=== PATIENT | male | born 1975 | race Caucasian/White ===

== ENCOUNTER 2017-01-26 23:32 | Inpatient (IN) | payer MEDICAID ==
[~2017-01-26] VITALS: Ht 188 cm; Wt 119.0 kg
[2017-01-26 23:34] VITALS: BP 153/97; PULSE 84; RESP 18; TEMP 99; O2SAT 96
[2017-01-26] MEDS ORDERED: NITROGLYCERIN 0.4 MG SL 25 TABS/BTL SL ONE (23:40)
[2017-01-27] VITALS (17 sets, daily range): BP systolic 123–157; BP diastolic 70–98; PULSE 58–102; RESP 16–20; TEMP 97.8–98.6; O2SAT 96–99
[2017-01-27] MEDS ORDERED: SODIUM CHLORIDE 0.9% FLUSH 10 ML FLUSH IVF PRN
[2017-01-27] MEDS ORDERED: NITROGLYCERIN 0.4 MG SL 25 TABS/BTL SL ONE
[2017-01-27] MEDS ORDERED: NITROGLYCERIN 2% OINT 1 GM PACKET TOP ONE
[2017-01-27] MEDS ORDERED: MORPHINE SULFATE 4 MG/ML INJ IV PUSH ONE
[2017-01-27] MEDS ORDERED: ONDANSETRON HCL 4 MG/2 ML VIAL IV ONE
[2017-01-27] MEDS ORDERED: SODIUM CHLORID 0.9% 500 ML INJ 500 ML IV ONE
--- NOTE | 2017-01-27 00:08 | PD ---
HPI Chief Complaint: Chest Pain Time Seen by Provider: 23:51 Travel History International Travel<30 days: No Contact w/Intl Traveler<30days: No Traveled to known affect area: No History of Present Illness HPI The patient is a 41 year old male who presents to the [facility] emergency department with a history of chest pain that awoke him from sound sleep presently an hour prior to arrival. He reports that it has been coming and going approximately every 5 minutes. He reports that it is across his chest and a line both on the right and left. He reports that the pain is a dull sensation. He reports that the pain radiates up into bilateral shoulders, upper arms. He reports that he had a similar pain 2 days ago. He reports that the pain 2 days ago resolved on its own. He denies having any indigestion. He denies having any nausea or vomiting. He reports that he has had diaphoresis associated with this. He denies having any shortness of breath. He denies having any prior history of coronary artery disease. He reports that he was diagnosed with hypertension in the past, however this resolved and he was taken off of medications presently 5 years ago. He denies having a primary care physician currently. He denies having any known history of hyperlipidemia or diabetes mellitus. The patient does report that he smokes 5-6 cigarettes per day. On review of systems otherwise, the patient denies any recent fevers, cough, congestion, neck pain, abdominal pain, diarrhea, urinary symptoms, or neurologic symptoms. [facility] Past Medical History Narrative Medical The patient's past medical history is significant for hypertension Diminished Hearing: No Hypertension: Yes Past Surgical History Narrative Surgical The patient's past surgical history is significant for an abdominal surgery that he cannot recall the name of. Abdominal Surgery: Yes (HERNIA REPAIR) Social History Alcohol Use: No Tobacco Use: Yes (5-6 CIGS/DAY) Substance Use: No Allergies-Medications (Allergen,Severity, Reaction): Coded Allergies: No Known Allergies (Unverified , 01/26/17) Reported Meds & Prescriptions Reported Meds & Active Scripts Active No Active Prescriptions or Reported Medications Review of Systems Except as stated in HPI: all other systems reviewed are Neg General / Constitutional: No: Fever Eyes: No: Visual changes HENT: No: Headaches Cardiovascular: Positive: Chest Pain or Discomfort, Diaphoresis Respiratory: No: Shortness of Breath Gastrointestinal: No: Abdominal Pain Genitourinary: No: Dysuria Musculoskeletal: No: Pain Skin: No Rash Neurologic: No: Weakness Psychiatric: No: Depression Endocrine: No: Polydipsia Hematologic/Lymphatic: No: Easy Bruising Physical Exam Narrative General: The patient is a well-developed well-nourished male in no acute distress. The patient reports that his pain was a 5 out of 10 in severity prior to arrival. The patient received 2 low-dose aspirin prior to her arrival and one sibling will nitroglycerin. The patient reports that he is now pain-free. Head and Neck exam: Head is normocephalic atraumatic. Eyes: EOMI, pupils are equal round and reactive to light. Nose: Midline septum with pink mucous membranes Mouth: Dentition unremarkable. Moist mucus membranes. Posterior oropharynx is not erythematous. No tonsillar hypertrophy. Uvula midline. Airway patent. Neck: No palpable lymphadenopathy. No nuchal rigidity. No thyromegaly. Cardiovascular: Regular rate and rhythm without murmurs, gallops, or rubs. No pulse deficit to the extremities on simultaneous auscultation and palpation of his radial artery. Lungs: Clear to auscultation bilaterally. No wheezes, rhonchi, or rales. Abdomen: Soft, without tenderness to palpation in all 4 quadrants of the abdomen. No guarding, rebound, or rigidity. Normal bowel sounds are audible. No tenderness on palpation of McBurney's point. Extremities: No clubbing, cyanosis, or edema. 2+ pulses in all 4 extremities. No calf tenderness on palpation. Back: No costovertebral angle tenderness to palpation. Neurologic Exam: Grossly nonfocal. Skin Exam: No rash noted. Intact skin that is warm and dry. Data Data Last Documented VS Vital Signs Date Time Temp Pulse Resp B/P (MAP) Pulse Ox O2 Delivery O2 Flow Rate FiO2 01/27/17 00:31 73 16 146/86 (106) 98 Room Air 01/27/17 00:23 2.00 01/26/17 23:34 99.0 Orders Orders Nitroglycerin Sl (Nitrostat Sl) (01/26/17 23:40) Electrocardiogram (01/26/17 23:51) B-Type Natriuretic Peptide (01/26/17 23:51) Ckmb (Isoenzyme) Profile (01/26/17 23:51) Complete Blood Count With Diff (01/26/17 23:51) Comprehensive Metabolic Panel (01/26/17:51) D-Dimer (01/26/17:) Magnesium (Mg) (01/26/17 23:51) Prothrombin Time / Inr (Pt) (01/26/17:51) Act Partial Throm Time (Ptt) (01/26/17:51) Troponin I (01/26/17:51) Lipase (01/26/17:51) Chest, Single Ap (01/26/17:51) Ecg Monitoring (01/26/17:) Bilateral Bp Monitoring (01/26/17:) Iv Access Insert/Monitor (01/26/17) Oximetry (01/26/17:) Oxygen Administration (01/26/17:) Morphine Inj (Morphine Inj) (01/27/17 00:00) Nitroglycerin 2% Oint (Nitroglycerin 2% (01/27/17 00:00) Sodium Chloride 0.9% Flush (Ns Flush) (01/27/17 00:00) Nitroglycerin Sl (Nitrostat Sl) (01/27/17 00:00) Sodium Chlorid 0.9% 500 Ml Inj (Ns 500 M (01/27/17 00:00) Ondansetron Inj (Zofran Inj) (01/27/17 00:00) CKMB (01/27/17 00:00) CKMB% (01/27/17 00:00) Admit To Inpatient (01/27/17 ) Vital Signs (Adult) Q4H (01/27/17 01:51) Activity Oob With Assistance (01/27/17 01:51) Wire Weaver / Telemetry .CONTINUOUS (01/27/17 01:51) Diet Npo (01/27/17 Breakfast) Sodium Chloride 0.9% Flush (Ns Flush) (01/27/17 02:00) Sodium Chloride 0.9% Flush (Ns Flush) (01/27/17 09:00) Basic Metabolic Panel (Bmp) (01/28/17 06:00) Complete Blood Count With Diff (01/28/17 06:00) Creatine Kinase (Cpk) (01/27/17 06:00) Creatine Kinase (Cpk) (01/27/17 12:00) Troponin I (01/27/17 06:00) Troponin I (01/27/17 12:00) Electrocardiogram (01/27/17 06:00) Electrocardiogram (01/27/17 12:00) Case Management Consult (01/27/17 01:51) Naloxone Inj (Narcan Inj) (01/27/17 02:00) Inpatient Certification (01/27/17 ) Consult Cardiology (01/27/17 ) Heparin Infusion KING.Q1H (01/27/17 01:55) Heparin Inj (Heparin Inj) (01/27/17 02:00) Heparin Inj (Heparin Inj) (01/27/17 08:00) Heparin Inj (Heparin Inj) (01/27/17 08:00) Heparin-D5w 25,000 U/250 Ml (Heparin-D5w (01/27/17 02:00) Cbc No Diff, Includes Plts (01/30/17 06:00) Act Partial Throm Time (Ptt) (01/27/17 08:55) Occult Blood (Hemoccult) Stool (01/27/17 01:55) Nitroglycerin Sl (Nitrostat Sl) (01/27/17 02:00) Admit Order (Ed Use Only) (01/27/17 01:59) Lipid Profile (01/27/17 06:00) Labs Laboratory Tests Test 01/27/17 00:00 White Blood Count 9.6 TH/MM3 Red Blood Count 5.17 MIL/MM3 Hemoglobin 16.4 GM/DL Hematocrit 46.0 % Mean Corpuscular Volume 88.9 FL Mean Corpuscular Hemoglobin 31.6 PG Mean Corpuscular Hemoglobin Concent 35.6 % Red Cell Distribution Width 13.4 % Platelet Count 239 TH/MM3 Mean Platelet Volume 9.3 FL Neutrophils (%) (Auto) 52.6 % Lymphocytes (%) (Auto) 35.1 % Monocytes (%) (Auto) 9.0 % Eosinophils (%) (Auto) 2.3 % Basophils (%) (Auto) 1.0 % Neutrophils # (Auto) 5.0 TH/MM3 Lymphocytes # (Auto) 3.4 TH/MM3 Monocytes # (Auto) 0.9 TH/MM3 Eosinophils # (Auto) 0.2 TH/MM3 Basophils # (Auto) 0.1 TH/MM3 CBC Comment DIFF FINAL Differential Comment Prothrombin Time 10.9 SEC Prothromb Time International Ratio 1.0 RATIO Activated Partial Thromboplast Time 32.8 SEC D-Dimer Quantitative (PE/DVT) 0.26 MG/L FEU Blood Urea Nitrogen 24 MG/DL Creatinine 0.96 MG/DL Random Glucose 138 MG/DL Total Protein 7.0 GM/DL Albumin 3.8 GM/DL Calcium Level 8.3 MG/DL Magnesium Level 2.0 MG/DL Alkaline Phosphatase 89 U/L Aspartate Amino Transf (AST/SGOT) 27 U/L Alanine Aminotransferase (ALT/SGPT) 52 U/L Total Bilirubin 0.4 MG/DL Sodium Level 140 MEQ/L Potassium Level 3.7 MEQ/L Chloride Level 105 MEQ/L Carbon Dioxide Level 23.7 MEQ/L Anion Gap 11 MEQ/L Estimat Glomerular Filtration Rate 85 ML/MIN Total Creatine Kinase 130 U/L Creatine Kinase MB 2.0 NG/ML Troponin I 0.12 NG/ML B-Type Natriuretic Peptide 4 PG/ML Lipase 143 U/L MDM Medical Decision Making Medical Screen Exam Complete: Yes Emergency Medical Condition: Yes Medical Record Reviewed: Yes Interpretation(s) Last Impressions Chest X-Ray 01/26/17 2456 Signed Impressions: Service Date/Time: Thursday, January 26, 2017 23:58 - CONCLUSION: No acute disease. Miguel Ángel Dillon MD Differential Diagnosis Acute coronary syndrome, versus aortic dissection, versus pulmonary embolism, versus pneumonia, versus acid reflux Narrative Course During the course of the patients emergency department visit, the patients history, examination, and differential diagnosis were reviewed with the patient. The patient had IV access obtained and blood work sent for analysis. The patient was placed on a phototypesetting equipment monitor with oximetry and blood pressure monitoring. An ECG was done on arrival. The patient's ECG reveals a sinus rhythm heart rate of 79, QRS duration is 91 ms, QTC 388 ms, no acute ST segment elevation is noted. This is compared to a prior ECG done by ambulance services which at that time did reveal ST segment depression in leads 3, aVF. The patient was initially provided and she was sent sublingual 1, nitroglycerin 1 inch to the chest wall, Zofran 4 mg IV, the patient received aspirin prior to arrival. The patient was given morphine 2 mg IV 1 for pain. The patients laboratory studies were reviewed and remarkable for white count of 9.6, hemoglobin 16.4, platelets 239 with 9 monos, CMP is remarkable for a BUN of 24, glucose 138, calcium 8.3, CPK 1:30, troponin I is 0.12, BNP is 4, lipase 143. PT PTT are unremarkable, d-dimer is 0.26. Radiology studies were reviewed and remarkable for a chest x-ray that shows no evidence of acute cardiopulmonary disease. Given the patient's elevated troponin and abnormal ECG the patient was started on heparin per [place] protocol. The patients results were discussed with the patient, including the plan of care. I explained that further testing and/ or monitoring is indicated based on the patients history, examination, and/ or laboratory findings. Therefore, I recommended admission for additional evaluation. The patient expressed understanding and was agreeable with this plan. The patient was admitted to the hospital in guarded condition and [facility] Physician Communication Physician Communication The patient's case was discussed with Dr. Vazquez who did agree to admit the patient for further evaluation and treatment at this time. Diagnosis Primary Impression: NSTEMI (non-ST elevated myocardial infarction) Admitting Information Admitting Physician Requests: Admit Scripts No Active Prescriptions or Reported Meds Guera Grewal MD Jan 27, 2017 00:08
--- NOTE | 2017-01-27 00:20 | RADRPT ---
EXAM DATE/TIME: 01/26/2017 23:58 [facility] COMPARISON: No previous studies available for comparison. INDICATIONS : Chest pain. MEDICAL HISTORY : None. SURGICAL HISTORY : None. ENCOUNTER: Initial ACUITY: 2 days PAIN SCORE: 6/10 LOCATION: Left chest FINDINGS: A single view of the chest demonstrates the lungs to be symmetrically aerated without evidence of mas s, infiltrate or effusion. The cardiomediastinal contours are unremarkable. Osseous structures are intact. CONCLUSION: No acute disease. Miguel Ángel Dillon MD on January 27, 2017 at 0:18 Board Certified Radiologist. This report was verified electronically.
[2017-01-27 00:23] LABS: BASOPHIL # 0.1 TH/MM3 (0-0.2); EOSINOPHIL # 0.2 TH/MM3 (0-0.4); EOSINOPHIL % 2.3 % (0.0-4.0); HEMO FLAGS DIFF FINAL; LYMPH % 35.1 % (9.0-44.0); LYMPHOCYTE # 3.4 TH/MM3 (1.0-4.8); MEAN CELL VOLUME 88.9 FL (80.0-100.0); MEAN CORPUSCULAR HEMOGLOBIN 31.6 PG (27.0-34.0); MEAN CORPUSCULAR HGB CONC 35.6 % (32.0-36.0); NEUT % 52.6 % (16.0-70.0); PLATELET COUNT 239 TH/MM3 (150-450); RED BLOOD COUNT 5.17 MIL/MM3 (4.50-5.90); RED CELL DISTRIBUTION WIDTH 13.4 % (11.6-17.2); WHITE BLOOD COUNT 9.6 TH/MM3 (4.0-11.0)
[2017-01-27 00:45] LABS: ALKALINE PHOSPHATASE 89 U/L (45-117); ALT (GPT) 52 U/L (12-78); ANION GAP 11 MEQ/L (5-15); AST (GOT) 27 U/L (15-37); BICARBONATE 23.7 MEQ/L (21.0-32.0); BLOOD UREA NITROGEN 24 MG/DL (7-18); CHLORIDE 105 MEQ/L (98-107); CREATINE KINASE 130 U/L (39-308); GLOMERULAR FILTRATION RATE 85 ML/MIN (>89); SODIUM (NA) 140 MEQ/L (136-145); TOTAL BILIRUBIN ADULT 0.4 MG/DL (0.2-1.0)
[2017-01-27 00:46] LABS: POTASSIUM 3.7 MEQ/L (3.5-5.1)
[2017-01-27 00:52] LABS: APTT (PATIENT) 32.8 SEC (24.3-30.1); PROTHROMBIN TIME - PATIENT 10.9 SEC (9.8-11.6)
[2017-01-27] MEDS ORDERED: SODIUM CHLORIDE 0.9% FLUSH 10 ML FLUSH IV FLUSH PRN ×2 (02:00→12:00)
[2017-01-27] MEDS ORDERED: HEPARIN-D5W 25,000 U/250 ML 250 ML IV PRN (02:00)
[2017-01-27] MEDS ORDERED: HEPARIN SODIUM - IV 10,000 UNITS/10 ML VIAL IV PUSH ONE (02:00)
[2017-01-27] MEDS ORDERED: NITROGLYCERIN 0.4 MG SL 25 TABS/BTL SL PRN (02:00)
[2017-01-27] MEDS ORDERED: NALOXONE HCL 0.4 MG/ML AMP IV PUSH PRN (02:00)
--- NOTE | 2017-01-27 03:53 | HHI.HP ---
[facility] No Primary Care Physician Admission Diagnosis Non STEMI Diagnoses: Chief Complaint: chest pain Travel History International Travel<30 Days: No Contact w/Intl Traveler <30 Da: No Traveled to Known Affected Are: No History of Present Illness 41 y/o male with a history of HTN (not on any medication for 5 years) presented to the ED with complaints of chest pain. Patient only speaks [place] and translation was provided by his son at bedside. Patient states he began to have chest pain tonight prior to coming in that woke him out of his sleep, he states the pain is a intermittent dull pressure in the center of his chest that radiated to his bilateral shoulders and down his arms, with associated diaphoresis and sob. He states he had an episode 2 days ago but did not think anything of it, and it went away on its own. He denies any fever, chills, dizziness or headaches. Past Family Social History Past Medical History HTN, no medication in 5 years Past Surgical History Hernia repair Reported Medications Reported Meds & Active Scripts Active No Active Prescriptions or Reported Medications Allergies: Coded Allergies: No Known Allergies (Unverified , 01/26/17) Active Ordered Medications Current Medications Medications (Trade) Dose Ordered Sig/Ross Route Start Time Stop Time Status Last Admin (NS Flush) 2 ml UNSCH PRN IVF 01/27/17 00:00 (NS Flush) 2 ml UNSCH PRN IV FLUSH 01/27/17 02:00 (NS Flush) 2 ml BID IV FLUSH 01/27/17 09:00 (Narcan Inj) 0.4 mg UNSCH PRN IV PUSH 01/27/17 02:00 (Heparin Inj) 5,000 units UNSCH PRN IV PUSH 01/27/17 08:00 (Heparin Inj) 2,500 units UNSCH PRN IV PUSH 01/27/17 08:00 Heparin Sodium/ Dextrose 250 ml @ 10 mls/hr TITRATE PRN IV 01/27/17 02:00 01/27/17 02:23 (Nitrostat Sl) 0.4 mg Q5M PRN SL 01/27/17 02:00 Family History Patient is unsure of his family history Social History Tobacco use: 1/2 PPD Alcohol use: Socially Physical Exam Vital Signs Vital Signs Date Time Temp Pulse Resp B/P (MAP) Pulse Ox O2 Delivery O2 Flow Rate FiO2 01/27/17 00:31 73 16 146/86 (106) 98 Room Air 01/27/17 00:23 18 99 Nasal Cannula 2.00 01/27/17 00:23 100 Nasal Cannula 2.00 01/27/17 00:00 72 16 157/98 (117) 96 Room Air 01/26/17 23:38 97 Room Air 01/26/17 23:34 99.0 84 18 153/97 (115) 96 Physical Exam GENERAL: This is a well-nourished, obese patient in NAD SKIN: No rashes, ecchymoses or lesions. Cool and dry. HEAD: Atraumatic. Normocephalic. EYES: Pupils equal round and reactive. ENT: Nose without bleeding, purulent drainage or septal hematoma Airway patent. NECK: Trachea midline. No JVD or lymphadenopathy. CARDIOVASCULAR: Regular rate and rhythm without murmurs, gallops, or rubs. RESPIRATORY: Clear to auscultation. Breath sounds equal bilaterally. No wheezes , rales, or rhonchi. GASTROINTESTINAL: Abdomen soft, non-tender, nondistended. MUSCULOSKELETAL: Extremities without clubbing, cyanosis, or edema. No joint tenderness, effusion, or edema noted. No calf tenderness. NEUROLOGICAL: Awake and alert. Motor and sensory grossly within normal limits. Normal speech. Laboratory Laboratory Tests Test 01/27/17 00:00 White Blood Count 9.6 Red Blood Count 5.17 Hemoglobin 16.4 Hematocrit 46.0 Mean Corpuscular Volume 88.9 Mean Corpuscular Hemoglobin 31.6 Mean Corpuscular Hemoglobin Concent 35.6 Red Cell Distribution Width 13.4 Platelet Count 239 Mean Platelet Volume 9.3 Neutrophils (%) (Auto) 52.6 Lymphocytes (%) (Auto) 35.1 Monocytes (%) (Auto) 9.0 Eosinophils (%) (Auto) 2.3 Basophils (%) (Auto) 1.0 Neutrophils # (Auto) 5.0 Lymphocytes # (Auto) 3.4 Monocytes # (Auto) 0.9 Eosinophils # (Auto) 0.2 Basophils # (Auto) 0.1 CBC Comment DIFF FINAL Differential Comment Prothrombin Time 10.9 Prothromb Time International Ratio 1.0 Activated Partial Thromboplast Time 32.8 D-Dimer Quantitative (PE/DVT) 0.26 Blood Urea Nitrogen 24 Creatinine 0.96 Random Glucose 138 Total Protein 7.0 Albumin 3.8 Calcium Level 8.3 Magnesium Level 2.0 Alkaline Phosphatase 89 Aspartate Amino Transf (AST/SGOT) 27 Alanine Aminotransferase (ALT/SGPT) 52 Total Bilirubin 0.4 Sodium Level 140 Potassium Level 3.7 Chloride Level 105 Carbon Dioxide Level 23.7 Anion Gap 11 Estimat Glomerular Filtration Rate 85 Total Creatine Kinase 130 Creatine Kinase MB 2.0 Troponin I 0.12 B-Type Natriuretic Peptide 4 Lipase 143 Result Diagram: 01/27/17 0000 01/27/17 0000 Briseida VTE Risk Assessment Briseida VTE Risk Assessment: Mod/High Risk (score >= 2) Caprini Risk Assessment Model Point Value = 1 Point Value = 2 Point Value = 3 Point Value = 5 Age 41-60 Minor surgery BMI > 25 kg/m2 Swollen legs Varicose veins or History of unexplained or recurrent spontaneous Oral contraceptives or hormone replacement Sepsis (< 1 month) Serious lung disease, including pneumonia (< 1 month) Abnormal pulmonary function Acute myocardial infarction Congestive heart failure (< 1 month) History of inflammatory bowel disease Medical patient at bed rest Age 61-74 Arthroscopic surgery Major open surgery (> 45 min) Laparoscopic surgery (> 45 min) Malignancy Confined to bed (> 72 hours) Immobilizing plaster cast Central venous access Age >= 75 History of VTE Family history of VTE Factor V Leiden Prothrombin [id number] Lupus anticoagulant Anticardiolipin antibodies Elevated serum homocysteine Heparin-induced thrombocytopenia Other congenital or acquired thrombophilia Stroke (< 1 month) Elective arthroplasty Hip, pelvis, or leg fracture Acute spinal cord injury (< 1 month) Prophylaxis Regimen Total Risk Factor Score Risk Level Prophylaxis Regimen 0-1 Low Early ambulation 2 Moderate Order ONE of the following: *Sequential Compression Device (SCD) *Heparin 5000 units SQ BID 3-4 Higher Order ONE of the following medications: *Heparin 5000 units SQ TID *Enoxaparin/Lovenox 40 mg SQ daily (WT < 150 kg, CrCl > 30 mL/min) *Enoxaparin/Lovenox 30 mg SQ daily (WT < 150 kg, CrCl > 10-29 mL/min) *Enoxaparin/Lovenox 30 mg SQ BID (WT < 150 kg, CrCl > 30 mL/min) AND/OR *Sequential Compression Device (SCD) 5 or more Highest Order ONE of the following medications: *Heparin 5000 units SQ TID (Preferred with Epidurals) *Enoxaparin/Lovenox 40 mg SQ daily (WT < 150 kg, CrCl > 30 mL/min) *Enoxaparin/Lovenox 30 mg SQ daily (WT < 150 kg, CrCl > 10-29 mL/min) *Enoxaparin/Lovenox 30 mg SQ BID (WT < 150 kg, CrCl > 30 mL/min) AND *Sequential Compression Device (SCD) Assessment and Plan Problem List: (1) NSTEMI (non-ST elevated myocardial infarction) ICD Code: I21.4 - Non-ST elevation (NSTEMI) myocardial infarction (2) HTN (hypertension) ICD Code: I10 - Essential (primary) hypertension Assessment and Plan 41 y/o male with a history of HTN (not on any medication for 5 years) presented to the ED with complaints of chest pain NSTEMI, troponin .12 EKG reviewed and shows SR with no ST elevation -Serial troponin and EKGs -Consult Cardiology for recommendations -Heparin Drip ordered -Nitropaste ordered -Morphine IV prn -Metoprolol BID ordered HTN, acute, patient has been off medications for 5 years -Monitor vitals, once pain is controlled and intervention complete patient may need to be placed on medications DVT prophylaxis: Heparin Discussed Condition With Patient and patient's son Physician Certification 2 Midnight Certification Type: Admission for Inpatient Services Order for Inpatient Services The services are ordered in accordance with Medicare regulations or non- Medicare payer requirements, as applicable. In the case of services not specified as inpatient-only, they are appropriately provided as inpatient services in accordance with the 2-midnight benchmark. Estimated LOS (days): 2 days is the estimated time the patient will need to remain in the hospital, assuming treatment plan goals are met and no additional complications. Post-Hospital Plan: Snow Bryant Jan 27, 2017 03:53
[2017-01-27] MEDS: NITROGLYCERIN 2% OINT 1 GM PACKET TOPICAL SCH ×2 (06:52→18:07)
[2017-01-27] MEDS ORDERED: HEPARIN SODIUM - IV 10,000 UNITS/10 ML VIAL IV PUSH PRN ×2 (08:00)
--- NOTE | 2017-01-27 08:09 | PD.CONS ---
[facility] Service CV Consult Requested By Reason for Consult chest pain Primary Care Physician No Primary Care Physician History of Present Illness Here with HTN admitted for chest pain. Patient only speaks Austrian and translation was provided by his son at bedside. Chest pain began two days ago and was intermittent. When happening it would last 10 minutes. It radiated across his chest. There were no associated symptoms. There were no exacerbating of alleviating symptoms. He smoke 5 to 8 cigarettes per day. He has no family history of heart disease. Review of Systems Consitutional: DENIES: Fatigue, Fever, Chills, Weight gain, Weight loss Eyes: DENIES: Amaurosis Fugax, Change in vision Respiratory: DENIES: See HPI, Cough, Snoring, Shortness of breath, Wheezing, Sputum production Cardiovascular: COMPLAINS OF: See HPI Gastrointestinal: DENIES: Nausea, Vomiting, Change in bowel habits, Reflux, Bloody stools, Melena Genitourinary: DENIES: Urinary incontinence, Difficulty voiding Integumentary: DENIES: Rash Neurologic: DENIES: Tingling or numbness, Memory problems, Poor Balance, Stroke symptoms Musculoskeletal: DENIES: Joint pain, Muscle pain, Limited range of motion, Back pain Psychiatric: DENIES: Anxiety, Depression, Sleep disturbances Hematologic: DENIES: Bruising tendencies, Bleeding tendencies Endocrine: DENIES: Weight gain, Weight loss, Thyroid disease Past Family Social History Allergies: Coded Allergies: No Known Allergies (Unverified , 01/26/17) Past Medical History see HPI Past Surgical History Hernia repair Reported Medications Reported Meds & Active Scripts Active No Active Prescriptions or Reported Medications Active Ordered Medications Current Medications Medications (Trade) Dose Ordered Sig/Ross Route Start Time Stop Time Status Last Admin (NS Flush) 2 ml UNSCH PRN IV FLUSH 01/27/17 02:00 (NS Flush) 2 ml BID IV FLUSH 01/27/17 09:00 (Narcan Inj) 0.4 mg UNSCH PRN IV PUSH 01/27/17 02:00 (Heparin Inj) 5,000 units UNSCH PRN IV PUSH 01/27/17 08:00 (Heparin Inj) 2,500 units UNSCH PRN IV PUSH 01/27/17 08:00 Heparin Sodium/ Dextrose 250 ml @ 10 mls/hr TITRATE PRN IV 01/27/17 02:00 01/27/17 02:23 (Nitrostat Sl) 0.4 mg Q5M PRN SL 01/27/17 02:00 (Nitroglycerin 2% Oint) 1 inch Q6HR TOPICAL 01/27/17 06:00 01/27/17 06:52 (Lopressor) 25 mg Q12HR PO 01/27/17 09:00 Family History see HPI Social History see HPI also Alcohol use: Socially denies substance abuse Physical Exam Vital Signs Vital Signs Date Time Temp Pulse Resp B/P (MAP) Pulse Ox O2 Delivery O2 Flow Rate FiO2 01/27/17 07:37 98.0 70 20 138/88 (105) 97 01/27/17 05:16 98.2 64 18 126/73 (90) 97 01/27/17 04:15 01/27/17 03:53 64 16 154/70 (98) 98 Room Air 01/27/17 00:31 73 16 146/86 (106) 98 Room Air 01/27/17 00:23 18 99 Nasal Cannula 2.00 01/27/17 00:23 100 Nasal Cannula 2.00 01/27/17 00:00 72 16 157/98 (117) 96 Room Air 01/26/17 23:38 97 Room Air 01/26/17 23:34 99.0 84 18 153/97 (115) 96 Physical Exam GENERAL: Well-nourished, well-developed patient in no apparent distress. NECK: No JVD. No carotid bruit. CARDIOVASCULAR: Regular rate and rhythm. S1/S2 no murmur, rub, or gallop. RESPIRATORY: No accessory muscle use. Clear to auscultation. Breath sounds equal bilaterally. GASTROINTESTINAL: Abdomen soft, non-tender, nondistended. MUSCULOSKELETAL: Extremities without clubbing, cyanosis, or edema. Laboratory Laboratory Tests Test 01/27/17 00:00 01/27/17 06:50 White Blood Count 9.6 Red Blood Count 5.17 Hemoglobin 16.4 Hematocrit 46.0 Mean Corpuscular Volume 88.9 Mean Corpuscular Hemoglobin 31.6 Mean Corpuscular Hemoglobin Concent 35.6 Red Cell Distribution Width 13.4 Platelet Count 239 Mean Platelet Volume 9.3 Neutrophils (%) (Auto) 52.6 Lymphocytes (%) (Auto) 35.1 Monocytes (%) (Auto) 9.0 Eosinophils (%) (Auto) 2.3 Basophils (%) (Auto) 1.0 Neutrophils # (Auto) 5.0 Lymphocytes # (Auto) 3.4 Monocytes # (Auto) 0.9 Eosinophils # (Auto) 0.2 Basophils # (Auto) 0.1 CBC Comment DIFF FINAL Differential Comment Prothrombin Time 10.9 Prothromb Time International Ratio 1.0 Activated Partial Thromboplast Time 32.8 D-Dimer Quantitative (PE/DVT) 0.26 Blood Urea Nitrogen 24 Creatinine 0.96 Random Glucose 138 Total Protein 7.0 Albumin 3.8 Calcium Level 8.3 Magnesium Level 2.0 Alkaline Phosphatase 89 Aspartate Amino Transf (AST/SGOT) 27 Alanine Aminotransferase (ALT/SGPT) 52 Total Bilirubin 0.4 Sodium Level 140 Potassium Level 3.7 Chloride Level 105 Carbon Dioxide Level 23.7 Anion Gap 11 Estimat Glomerular Filtration Rate 85 Total Creatine Kinase 130 Creatine Kinase MB 2.0 Troponin I 0.12 B-Type Natriuretic Peptide 4 Lipase 143 Result Diagram: 01/27/17 0000 01/27/17 0000 Assessment and Plan Problem List: (1) NSTEMI (non-ST elevated myocardial infarction) ICD Codes: I21.4 - Non-ST elevation (NSTEMI) myocardial infarction (2) HTN (hypertension) ICD Codes: I10 - Essential (primary) hypertension Assessment and Plan Will schedule coronary angiogram for this afternoon make NPO HTN is well controlled now Simone Vidal Jan 27, 2017 08:09
[2017-01-27] MEDS ORDERED: MIDAZOLAM HCL 2 MG/2 ML VIAL IV PUSH SCH (08:15)
[2017-01-27 08:23] LABS: HDL CHOLESTEROL 27.2 MG/DL (40.0-60.0)
[2017-01-27] MEDS: METOPROLOL TARTRATE 25 MG TAB PO SCH ×2 (08:54→21:06)
[2017-01-27] MEDS: SODIUM CHLORIDE 0.9% FLUSH 10 ML FLUSH IV FLUSH SCH ×2 (09:00→21:00)
[2017-01-27] MEDS: SODIUM CHLOR 0.9% 1000 ML INJ 1,000 ML IV SCH (09:04)
[2017-01-27 09:07] LABS: APTT (PATIENT) 36.9 SEC (24.3-30.1)
[2017-01-27] MEDS ORDERED: HEPARIN-NS/PF INJ 1,000 ML ONE (09:29)
[2017-01-27] MEDS ORDERED: MIDAZOLAM HCL 2 MG/2 ML VIAL ONE ×2 (09:30→09:54)
[2017-01-27] MEDS ORDERED: NITROGLYCERIN INJ 5 ML ONE (09:31)
[2017-01-27] MEDS ORDERED: VERAPAMIL HCL 5 MG/2 ML VIAL ONE (09:31)
[2017-01-27] MEDS ORDERED: HEPARIN SODIUM - IV 10,000 UNITS/10 ML VIAL ONE (09:31)
--- NOTE | 2017-01-27 09:53 | EKG ---
Date Performed: 01/26/2017 Time Performed: 23:35:25 PTAGE: 41 years EKG: Sinus rhythm MINIMAL VOLTAGE CRITERIA FOR LVH, CONSIDER NORMAL VARIANT BORDERLINE ECG INTERPRETATION BASED ON A D EFAULT AGE OF 38 YEARS NO PREVIOUS TRACING DOCTOR: Yoan Young Interpretating Date/Time 01/27/2017 09:52:26
--- NOTE | 2017-01-27 10:03 | EKG ---
Date Performed: 01/27/2017 Time Performed: 05:48:07 PTAGE: 41 years EKG: SINUS BRADYCARDIA BORDERLINE ECG PREVIOUS TRACING : 01/27/2017 02.56 Compared to prior tracing no significant change DOCTOR: Yoan Young Interpretating Date/Time 01/27/2017 10:00:19
[2017-01-27] MEDS ORDERED: MISC INFORMATION XX ONE (10:15)
[2017-01-27] MEDS ORDERED: BACITRACIN OINT 0.9 GM PKT TOP ONE (10:15)
--- NOTE | 2017-01-27 10:15 | CATHPROC ---
[employer] HIS Report Study Information Study Number Admission Scheduled Start Study Start [id number] Jan 27 2017 2:01AM 01/27/2017 Jan 27 2017 9:33AM [place] Service Cardiac Catheterization Admit Source Facility Department Emergency department [facility] Physician and Clinical Staff Initial Abrahan Montague Fast [employer] Server Rehan RN, Jake Recorder Miranda Cano,RT(R) Scrub Ming Murillo RCIS(BS) Procedures Performed Procedure Location (Site) Vessel Name Angiogram LV LV Ventricle Coronary Angiograms LCA Left Coronary Coronary Angiograms RCA Right Coronary L Heart Cath Wire insertion Radial (right) Radial Art. Equipment Time Gallery Director Description Size Mfg Part Number Used/Scraped TRANSDUCER, TRUWAVE [id number] 09:39 CAREY HDEZ * Used W/STOCKCOCK *[id number] *[id number] *[id number] PIGTAIL ANG. 145 INFINITI [id number] CATHETER *[id number] 09:39 [employer] PACK, CCL CUSTOM * Used *[id number] 09:39 [employer] SUPPORT, ARTERIAL ADULT 21600 *[id number] Used [id number] 09:39 [email or web address] PACER PEN, SKIN DUAL W/ RULER * Used *[id number] BAND, RADIAL COMPRESSION TR [id number] 10:08 [employer] 29CM Used LARGE 29 *[id number] SHEATH, FR6 RADIAL PRELUDE 09:39 [employer] FR 6 [id number] Used EASE 11CM [id number] 09:39 [employer] WIRE, EXCHANGE 260CM 3MMJ 260CM Used *[id number] 09:39 [employer] OMNIPAQUE, 350 MG, 150ML 150ML [id number] Used [id number] 09:39 [employer] BLANKET,WARM AIR CCL * Used *[id number] History: Allergies Allergy Reaction No Known Allergies History: Risk Factors Family History of Hypertension Dyslipidemia Previous PA Previous Heart Failure Premature CAD Yes No No No No Prior Valve Prior PCI Prior CABG Surgery No No No Cerebrovascular Peripheral Artery Chronic Lung On Dialysis Diabetes Disease Disease Disease No No No No No History: Risk Factors Selection Items Current Smoker History: Symptoms/Diagnosis Selection Items Chest pain History: Stress Tests Stress or Imaging Studies Performed No History: Other Disease Selection Items HTN History: Other Current Smoker Method Packs a Day Years Used Pack Years Yes Cigarettes 1 20 20 Labs Hgb (g/dl) Hct (%) RBC (MIL/MM3) WBC (l/cumm) Platelets (thousands) 11.60-17.00 35.00-51.00 4.00-5.90 4.00-11.00 150.00-450.00 16.4 46 5.1 9.6 239 Glucose (mg/dl) BUN (mg/dl) Creatinine (mg/dl) BUN:Creatinine (1:x) 74.00-106.00 7.00-18.00 0.50-1.30 10.00-20.00 138 24 1.0 24 Na (meq/l) K (meq/l) Cl (meq/l) CO2 (mmol/L) Ca (mg/dl) 136.00-145.00 3.50-5.10 98.00-107.00 21.00-32.00 8.50-10.10 140 3.7 105 23.7 8.3 PT (sec) PTT (sec) INR (PTT:PT) 9.80-11.60 24.30-30.10 0.90-1.10 10.9 36.9 1 Troponin I (ng/ml) CPK (u/l) CPK-MB (ng/ML) 0.02-0.05 26.00-308.00 0.50-3.60 3.06 130 2.0 Medication Medication Total Dose (Bolus/Oral) Medication Total Dosage/Unit 1% XYLOCAINE 20 mL FENTANYL 75 mcg RADIAL COCKTAIL 5 mL (Bolus) VERSED 3 mg Medications (Bolus/Oral) Medication Time Given Dosage/Unit Administered By Reason FENTANYL 01/27/2017 9:50:42 AM 50 mcg Jake Parks RN 50 mcg FENTANYL given in lab by Jake Parks RN in Left Antecubital via Peripheral IV. VERSED 01/27/2017 9:51:48 AM 2 mg Jake Parks RN 2 mg VERSED given in lab by Jake Parks RN via Peripheral IV. 1% XYLOCAINE 01/27/2017 9:53:16 AM 20 mL Abrahan Garcia 20 mL 1% XYLOCAINE given in lab by Abrahan Garcia in Right Radial via Subcutaneous. FENTANYL 01/27/2017 9:55:00 AM 25 mcg Jake Parks RN 25 mcg FENTANYL given in lab by Jake Parks RN via Peripheral IV. RADIAL COCKTAIL 01/27/2017 9:55:08 AM 5 mL (Bolus) Abrahan Garcia 5 mL (Bolus) RADIAL COCKTAIL given in lab by Abrahan Garcia via Radial. Using [Solution Name]. 200mg nitro VERSED 01/27/2017 9:56:11 AM 1 mg Jake Parks RN 1 mg VERSED given in lab by Jake Parks RN via Peripheral IV. Medication (Drip) Medication Time Given Dosage/Unit Concentration/Unit Diluent (ml) Solution IV Solutions 01/27/2017 9:34:51 AM 0 mL (IV) 1000 NaCl .9 Patient arrived on IV Solutions in Left Antecubital via Peripheral IV. Pump/Drip Flow = 20 ml/hr usin g NaCl .9. Initial Case Assessment Cardiovascular HR Rhythm NIBP Chest Pain 67 reg 155/107 0 Edema Present Skin color Skin None Normal Warm Circulatory - Right Pulses Dorsalis Pedis Femoral Radial 3 3 2 Scale (0,1,2,3,4,d) Scale (0,1,2,3,4,d) Circulatory - Lower Extremities Color Lower Right Normal Neurological State Oriented to time-place- Alert Moves all extremities person Respiration - General Respiration Rate SpO2 (%) (B/min) 18 97 Final Case Assessment Cardiovascular HR Rhythm NIBP Chest Pain 58 reg 138/82 0 Edema Present Skin color Skin None Normal Warm Circulatory - Right Pulses Dorsalis Pedis Femoral Radial 3 3 2 Scale (0,1,2,3,4,d) Scale (0,1,2,3,4,d) Circulatory - Lower Extremities Color Lower Right Normal Neurological State Oriented to time-place- Alert Moves all extremities person Respiration - General Respiration Rate SpO2 (%) (B/min) 11 95 Chronological Log Time Study Chronological Log 9:25:20 Patient arrived via Bed. 9:33:16 Reference ECG taken Vitals capture started with the following parameters, Patient=Adult, Interval=3 min, Initial Pr ujsfjp=657 mmHg, 9:33:17 Deflation Rate=5 mmHg, Cuff placed on left forearm 9:33:57 Patient Name, D.O.B, / Armband Verified By R.N. :33:57 Consent signed by the physician and the patient and verified by the [facility] staff. Verbal Stimulation=~VERBAL~ Physical Stimulation=~PHYSICAL~ Airway=~AIRWAY~ Respiration=~RESPIR ATION~ 9:33:59 TOTAL=~TOTAL~. (0=absent, 1=limited, 2=present) 9:34:01 Allens test performed on the right radial and ulnar artery by Michael Chun with a positiv e result 9:34:18 HR=69 bpm, GZYR=731/99 mmhg, SpO2=96.0 %, Resp=14 B/min, Pain=0, Greg=10, Gr=2 9:34:25 Patient has been NPO for More than 6Hrs. 9:34:28 Skin Breakdown-none 9:34:40 A # 20 IV was noted in the Antecubital (left). Grade = 0 9:34:51 Patient arrived on IV Solutions in Left Antecubital via Peripheral IV. Pump/Drip Flow = 20 ml/hr using NaCl .9. 9:36:51 HR=77 bpm, RWJL=631/100 mmhg, SpO2=96.0 %, Resp=17 B/min, Pain=0, Greg=10, Gr=2 9:39:54 HR=78 bpm, CZNC=232/107 mmhg, SpO2=98.0 %, Resp=20 B/min, Pain=0, Greg=10, Gr=2 9:40:49 Pressure channel 1 zeroed. Assessment: Initial Case, HR=67 BPM, Rhythm=reg, OKWM=134/107 mmhg, Chest Pain=0, Edema=None, Color=Normal, Skin = Warm Right Pulses: Juan Ped=3, Femoral=3, Radial=2 9:41:31 Lower Right Extremities: Color=Normal Neurological: State=Alert, Ox3, VIDAL Respiration: Resp=18 B/min, SpO2=97 % 9:42:16 Right Radial and groin(s) prepped with 2% chlorhexidine, and draped after a 3 min. waiting t shmuel. 9:42:52 HR=67 bpm, QJON=839/99 mmhg, SpO2=97.0 %, Resp=16 B/min, Pain=0, Greg=10, Gr=2 9:45:50 HR=63 bpm, MKPI=992/97 mmhg, SpO2=95.0 %, Resp=24 B/min, Pain=0, Greg=10, Gr=2 9:48:50 HR=63 bpm, KPAB=101/91 mmhg, Resp=17 B/min, Pain=0, Greg=10, Gr=2 9:49:43 MD arrived. 9:50:42 50 mcg FENTANYL given in lab by Jake Parks RN in Left Antecubital via Peripheral IV. 9:51:48 2 mg VERSED given in lab by Jake Parks RN via Peripheral IV. 9:51:50 HR=76 bpm, CZUT=646/95 mmhg, SpO2=96.0 %, Resp=19 B/min, Pain=0, Greg=10, Gr=2 Time Out. Correct patient, correct procedure, correct physician, power injector not loaded with contrast with surgical 9:52:00 team present. Time Out Concurred by MD and individual staff in procedure. 9:53:08 Case Start 9:53:09 Verbal Stimulation=2 Physical Stimulation=2 Airway=2 Respiration=2 TOTAL=8. (0=absent, 1=[place] ited, 2=present) 9:53:16 20 mL 1% XYLOCAINE given in lab by Abrahan Garcia in Right Radial via Subcutaneous. 9:54:42 Access site was [email or web address] [email or web address] 9:54:50 A wire was inserted via Radial (right). 9:54:53 HR=69 bpm, FGYI=929/100 mmhg, SpO2=93 %, Resp=13 B/min, Pain=0, Greg=10, Gr=2 9:55:00 25 mcg FENTANYL given in lab by Jake Parks RN via Peripheral IV. A SHEATH, FR6 RADIAL PRELUDE EASE 11CM FR 6 was advanced into the Radial (right) using the Perc utaneous 9:55:01 technique. 9:55:08 5 mL (Bolus) RADIAL COCKTAIL given in lab by Abrahan Garcia via Radial. Using [Solution Name ]. 200mg nitro A JR 5.0 INFINITI CATHETER FR 6 was advanced over a wire. OMNIPAQUE, 350 MG, 150ML 150ML was us ed for 9:55:56 injections. 9:56:11 1 mg VERSED given in lab by Jake Parks RN via Peripheral IV. Recorded Pressure: LV, HR=62, Condition=Condition 1 9:56:29 (Left Ventricle) LV 134/17/24 Recorded Pressure: LV, Ao, HR=72, Condition=Condition 1 9:56:32 (Left Ventricle) LV 133/16/25, (Aorta) Ao 127/95/111 9:57:19 The RCA was injected and visualized at various angles. OMNIPAQUE, 350 MG, 150ML 150ML used. 9:57:51 HR=68 bpm, HUPU=934/93 mmhg, SpO2=92 %, Resp=12 B/min, Pain=0, Greg=10, Gr=2 9:58:16 Catheter was removed A JL 3.5 GUIDE CATHETER FR 6 was advanced over a wire. OMNIPAQUE, 350 MG, 150ML 150ML was used for 9:58:18 injections. Recorded Pressure: Ao, HR=59, Condition=Condition 1 9:59:32 (Aorta) Ao 109/77/92 10:00:37 The LCA was injected and visualized at various angles. OMNIPAQUE, 350 MG, 150ML 150ML used . 10:00:51 HR=62 bpm, KRSP=180/84 mmhg, SpO2=95 %, Resp=8 B/min, Pain=0, Greg=10, Gr=2 10:03:49 HR=59 bpm, VUFH=973/89 mmhg, SpO2=92.0 %, Resp=10 B/min 10:03:50 Catheter was removed A PIGTAIL ANG. 145 INFINITI CATHETER FR 6 was advanced over a wire. OMNIPAQUE, 350 MG, 150ML 15 0ML was 10:03:52 used for injections. 10:04:45 injector loaded now by estevan parks 10:05:44 The LV was injected at 10 cc/sec for a total of 30. OMNIPAQUE, 350 MG, 150ML 150ML used. 10:06:15 Catheter was removed 10:06:30 Case End Assessment: Final Case, HR=58 BPM, Rhythm=reg, LDNK=364/82 mmhg, Chest Pain=0, Edema=None, Col or=Normal, Skin = Warm Right Pulses: Juan Ped=3, Femoral=3, Radial=2 10:06:34 Lower Right Extremities: Color=Normal Neurological: State=Alert, Ox3, VIDAL Respiration: Resp=11 B/min, SpO2=95 % 10:06:52 HR=57 bpm, HZAF=324/82 mmhg, SpO2=94 %, Resp=11 B/min, Pain=0, Greg=10, Gr=2 10:07:36 Catheter(s) removed without difficulty Radial Compression Device Used. 15 mLs of air placed in BAND, RADIAL COMPRESSION TR LARGE 29 2 9CM. Affected 10:07:37 hand 99 % O2 saturation. 10:07:54 BAND, RADIAL COMPRESSION TR LARGE 29 29CM placement in the Radial (right) 10:08:23 Sterile dressing applied to site 10:08:26 Cine recording checked. 10:08:28 Bedside Report will be given. 10:08:32 Contrast Scanned 10:08:34 A Left Heart Cath was performed. 10:08:38 Clinical correlaton risk stratification. 10:09:52 HR=62 bpm, LOCU=979/93 mmhg, SpO2=93.0 %, Resp=12 B/min, Pain=0, Greg=10, Gr=2 10:12:52 HR=54 bpm, FQDH=359/89 mmhg, SpO2=99.0 %, Resp=12 B/min, Pain=0, Greg=10, Gr=2 End Study - Contrast Media Used In Study Contrast Total Opened (mL) Total Used (mL) Total Wasted (mL) Omnipaque 70 70 0 End Study - Maximum Contrast Load Max Contrast Load (mL) 600.0 End Study - Radiation Exposure Fluoro Time (minutes) 2.4 End Study - Sheaths Sheaths Pulled By Sheath Hold Time (min) Ming Murillo End Study - Patient Disposition Complications Transferred To Interventional Outcome No Outpatient Bed No attempt made
--- NOTE | 2017-01-27 10:37 | MA ---
cc: LAVELL BAUMANN DATE: 01/27/2017 INDICATION [id number] CO. PROCEDURE PERFORMED 1. Fluoroscopy with interpretation. 2. Coronary angiography. 3. Left heart catheterization. 4. Left ventriculography. METHOD The risks, benefits and alternatives were discussed with the patient. The patient understood and consented to the procedure. The patient was brought in the catheterization lab and placed on the catheterization table. The right wrist was prepped and draped in a sterile fashion. The right wrist was anesthetized with 2% lidocaine. The right radial artery was cannulated and a 6 Azerbaijani, 7 cm sheath was placed without difficulty. LEFT HEART CATHETERIZATION Intraventricular hemodynamics measured 133/16 mmHg. There was no aortic stenosis by transaortic valvular pullback gradient. LEFT VENTRICULOGRAPHY Left ventriculography was performed in a right anterior oblique view using a 30 cc contrast injection and good opacification. Left ventricular ejection fraction was visually estimated at 60% without regional wall motion abnormalities. No significant mitral regurgitation was noted. CORONARY ANGIOGRAPHY The left coronary circulation was selectively engaged with a 5 Azerbaijani, JL4 catheter. The right coronary circulation was selectively engaged with a 5 Azerbaijani JL4 catheter. Angiography findings are as follows: 1. The left main is angiographically normal. 2. The left anterior descending coronary has minor luminal irregularities proximally, but in the midsegment at the bifurcation of a moderate-sized diagonal branch is a 99% subtotal occlusion involving the bifurcation. The remainder of the left anterior descending coronary has minor luminal irregularities. 3. The left circumflex gives rise to an obtuse marginal branch which has 30-40% stenosis in the midsegment. 4. The right coronary is a dominant vessel giving rise to a posterior descending branch. The right coronary is diffusely diseased with 70% stenosis throughout the midsegment. The posterior descending and posterolateral branches have minor luminal irregularities. CONCLUSIONS 1. Severe stenosis involving the bifurcation of the left anterior descending coronary artery. 2. Moderate to severe right coronary artery disease. 3. Normal left-sided filling pressures. 4. Normal left ventricular systolic function. PLAN Will get a CT surgical consultation. Given his young age and the involvement at the bifurcation which would be difficult percutaneously to approach, I think he would be best served with consideration for bypass. Will obtain a 2-D echocardiogram. MD BISMARK Holcomb /10:13 AM /10:22 AM
[2017-01-27] MEDS: ASPIRIN 81 MG CHEW TAB CHEW SCH (11:30)
--- NOTE | 2017-01-27 11:37 | PD.CONS ---
History of Present Illness Service CT Surgery Consult Requested By Dr. Garcia Reason for Consult Chest pain, NSTEMI, 2 vessel CAD Primary Care Physician No Primary Care Physician Diagnoses: (1) CAD (coronary artery disease) (2) NSTEMI (non-ST elevated myocardial infarction) (3) Hyperlipemia History of Present Illness 41 y/o male presents with chest pain, SOB, and diaphoresis. He experienced chest pain and pressure radiating to both arms which awoke him from sleep. He presented to the ED and ruled-in for NSTEMI. He underwent cardiac cath today and was found to have high-grade LAD stenosis at the bifurcation of a diagonal and a 70% RCA stenosis. He has diffuse CAD. Past Family Social History Allergies: Coded Allergies: No Known Allergies (Unverified , 01/26/17) Past Medical History HTN Past Surgical History Hernia repair Reported Medications none Active Ordered Medications Current Medications Medications (Trade) Dose Ordered Sig/Ross Route Start Time Stop Time Status Last Admin (NS Flush) 2 ml UNSCH PRN IV FLUSH 01/27/17 02:00 (NS Flush) 2 ml BID IV FLUSH 01/27/17 09:00 (Narcan Inj) 0.4 mg UNSCH PRN IV PUSH 01/27/17 02:00 (Nitrostat Sl) 0.4 mg Q5M PRN SL 01/27/17 02:00 (Nitroglycerin 2% Oint) 1 inch Q6HR TOPICAL 01/27/17 06:00 01/27/17 06:52 (Lopressor) 25 mg Q12HR PO 01/27/17 09:00 01/27/17 08:54 Sodium Chloride 1,000 ml @ 30 mls/hr Q24H IV 01/27/17 08:09 02/01/17 08:08 01/27/17 09:04 (Versed Inj) 1 mg CHIEF METEOROLOGIST IV PUSH 01/27/17 08:15 01/31/17 08:14 Family History Mother - diabetes Son - Transposition (TGA), repaired at [facility] at age 1 Denies CAD Social History Tobacco abuse 1 ppd since age 14 Denies ETOH , 2 young children Physical Exam Vital Signs Vital Signs Date Time Temp Pulse Resp B/P (MAP) Pulse Ox O2 Delivery O2 Flow Rate FiO2 01/27/17 10:59 95 Room Air 01/27/17 08:45 77 01/27/17 07:37 98.0 70 20 138/88 (105) 97 01/27/17 05:16 98.2 64 18 126/73 (90) 97 01/27/17 04:15 01/27/17 03:53 64 16 154/70 (98) 98 Room Air 01/27/17 00:31 73 16 146/86 (106) 98 Room Air 01/27/17 00:23 18 99 Nasal Cannula 2.00 01/27/17 00:23 100 Nasal Cannula 2.00 01/27/17 00:00 72 16 157/98 (117) 96 Room Air 01/26/17 23:38 97 Room Air 01/26/17 23:34 99.0 84 18 153/97 (115) 96 Physical Exam GENERAL: This is a well-nourished, well-developed patient, in no apparent distress. SKIN: No rashes, ecchymoses or lesions. Cool and dry. HEAD: Atraumatic. Normocephalic. No temporal or scalp tenderness. EYES: Pupils equal round and reactive. Extraocular motions intact. No scleral icterus. No injection or drainage. ENT: Nose without bleeding, purulent drainage or septal hematoma. Throat without erythema, tonsillar hypertrophy or exudate. Uvula midline. Airway patent. NECK: Trachea midline. No JVD or lymphadenopathy. Supple, nontender, no meningeal signs. CARDIOVASCULAR: Regular rate and rhythm without murmurs, gallops, or rubs. RESPIRATORY: Clear to auscultation. Breath sounds equal bilaterally. No wheezes , rales, or rhonchi. GASTROINTESTINAL: Abdomen soft, non-tender, nondistended. No hepato-splenomegaly , or palpable masses. No guarding. MUSCULOSKELETAL: Extremities without clubbing, cyanosis, or edema. No joint tenderness, effusion, or edema noted. No calf tenderness. Negative Homans sign bilaterally. NEUROLOGICAL: Awake and alert. Cranial nerves II through XII intact. Motor and sensory grossly within normal limits. Five out of 5 muscle strength in all muscle groups. Normal speech. Laboratory Laboratory Tests Test 01/27/17 00:00 01/27/17 06:50 01/27/17 08:30 White Blood Count 9.6 Red Blood Count 5.17 Hemoglobin 16.4 Hematocrit 46.0 Mean Corpuscular Volume 88.9 Mean Corpuscular Hemoglobin 31.6 Mean Corpuscular Hemoglobin Concent 35.6 Red Cell Distribution Width 13.4 Platelet Count 239 Mean Platelet Volume 9.3 Neutrophils (%) (Auto) 52.6 Lymphocytes (%) (Auto) 35.1 Monocytes (%) (Auto) 9.0 Eosinophils (%) (Auto) 2.3 Basophils (%) (Auto) 1.0 Neutrophils # (Auto) 5.0 Lymphocytes # (Auto) 3.4 Monocytes # (Auto) 0.9 Eosinophils # (Auto) 0.2 Basophils # (Auto) 0.1 CBC Comment DIFF FINAL Differential Comment Prothrombin Time 10.9 Prothromb Time International Ratio 1.0 Activated Partial Thromboplast Time 32.8 36.9 D-Dimer Quantitative (PE/DVT) 0.26 Blood Urea Nitrogen 24 Creatinine 0.96 Random Glucose 138 Total Protein 7.0 Albumin 3.8 Calcium Level 8.3 Magnesium Level 2.0 Alkaline Phosphatase 89 Aspartate Amino Transf (AST/SGOT) 27 Alanine Aminotransferase (ALT/SGPT) 52 Total Bilirubin 0.4 Sodium Level 140 Potassium Level 3.7 Chloride Level 105 Carbon Dioxide Level 23.7 Anion Gap 11 Estimat Glomerular Filtration Rate 85 Total Creatine Kinase 130 205 Creatine Kinase MB 2.0 Troponin I 0.12 3.06 B-Type Natriuretic Peptide 4 Lipase 143 Triglycerides Level 387 Cholesterol Level 162 LDL Cholesterol 57 HDL Cholesterol 27.2 Cholesterol/HDL Ratio 5.95 Result Diagram: 01/27/17 0000 01/27/17 0000 Imaging Last Impressions Chest X-Ray 01/26/17 5151 Signed Impressions: Service Date/Time: Thursday, January 26, 2017 23:58 - CONCLUSION: No acute disease. Miguel Ángel Dillon MD Course Patient is stable s/p [facility]. Assessment and Plan Problem List: (1) NSTEMI (non-ST elevated myocardial infarction) ICD Codes: I21.4 - Non-ST elevation (NSTEMI) myocardial infarction (2) CAD (coronary artery disease) ICD Codes: I25.10 - Atherosclerotic heart disease of [place] coronary artery without angina pectoris (3) Hyperlipemia ICD Codes: E78.5 - Hyperlipidemia, unspecified Plan: Started lipitor Assessment and Plan 41 y/o male presents with a NSTEMI and preserved LVEF. He has 2 vessel CAD with a 99% LAD stenosis at the bifurcation of a large diagonal. CABG is recommended. STS risk is as follows: Risk Model and Variables - STS Adult Cardiac Surgery Database Version 2.81 RISK SCORES About the STS Risk Calculator Procedure: CAB Only Risk of Mortality: 0.359% Morbidity or Mortality: 7.698% Long Length of Stay: 1.955% Short Length of Stay: 70.754% Permanent Stroke: 0.209% Prolonged Ventilation: 5.196% DSW Infection: 0.397% Renal Failure: 1.463% Reoperation: 2.731% I suspect he may be diabetic and will chesk an HbA1C preoperatively. Risks and benefits of CABG discussed and he agrees to proceed. Problem Qualifiers (1) CAD (coronary artery disease): Qualified Codes: I25.110 - Atherosclerotic heart disease of [place] coronary artery with unstable angina pectoris (2) Hyperlipemia: Qualified Codes: E78.5 - Hyperlipidemia, unspecified Lucero Bunn MD Jan 27, 2017 11:37
[2017-01-27] MEDS ORDERED: METOPROLOL TARTRATE 25 MG TAB PO SCH (12:00)
[2017-01-27] MEDS ORDERED: PAPAVERINE INJ 60 MG, NITROGLYCERIN INJ 100 MCG, DILTIAZEM INJ 100 MG in SODIUM CHLORID... IRRIGATION SCH (12:00)
[2017-01-27] MEDS ORDERED: ceFAZolin 2 GM PREMIX 50 ML IV SCH (12:00)
[2017-01-27] MEDS ORDERED: CHLORHEXIDINE GLUCONATE 4% SOLN 120 ML BTL TOPICAL SCH (12:00)
[2017-01-27] MEDS ORDERED: INSULIN REGULAR (IV INFUSION) 100 UNITS in SODIUM CHLORIDE 0.9% INJ 99 ML IV PRN (12:00)
[2017-01-27] MEDS ORDERED: PILL SPLITTER OTHER PRN (13:15)
--- NOTE | 2017-01-27 13:38 | RADRPT ---
EXAM DATE/TIME: 01/27/2017 12:13 [facility] COMPARISON: No previous studies available for comparison. INDICATIONS : Pre-Op cardiac surgery. MEDICAL HISTORY : Hypertension. SURGICAL HISTORY : Hernia repair. Cardiac catheterization. ENCOUNTER: Initial ACUITY: 1 day PAIN SCORE: 0/10 LOCATION: Bilateral neck PEAK SYSTOLIC VELOCITIES (cm/sec): ICA/CCA RATIO: Right: 0.9 Left: 0.6 ICA: Right: 58 Left: 58 CCA: Right: 65 Left: 100 ECA: Right: 146 Left: 84 VERTEBRAL: Right: 34 antegrade Left: 39 antegrade Elevated flow velocities and ICA/CCA ratios have been found to correlate with increased degrees of vessel stenosis, calculated as percentage of diameter relative to a normal segment of distal ICA/CCA FINDINGS: RIGHT CAROTID: No significant stenosis is visualized. The waveforms are within normal limits. LEFT CAROTID: No significant stenosis is visualized. The waveforms are within normal limits. VERTEBRAL ARTERIES: Antegrade flow is seen in both vertebral arteries. MISCELLANEOUS: None. CONCLUSION: 1. Very minimal carotid plaque without significant flow-limiting stenosis. 2. Antegrade vertebral artery flow bilaterally. Chance Gan MD on January 27, 2017 at 13:35 Board Certified Radiologist. This report was verified electronically.
--- NOTE | 2017-01-27 13:42 | RADRPT ---
EXAM DATE/TIME: 01/27/2017 12:32 [facility] COMPARISON: No previous studies available for comparison. INDICATIONS : Per-Op cardiac surgery. MEDICAL HISTORY : Hypertension. SURGICAL HISTORY : Hernia repair. Cardiac catheterization. ENCOUNTER: Initial ACUITY: 1 day PAIN SCORE: 0/10 LOCATION: Bilateral leg. TECHNIQUE: Venous ultrasound of the left and right leg was performed from the inguinal ligament to the proximal calf. Real-time, color Doppler and spectral tracing, compression and augmentation techniques were us ed. FINDINGS: RIGHT LEG: There is normal compressibility of the deep venous system from the inguinal region to the proximal ca lf. No echogenic clot is seen in the lumen of the common femoral, femoral, popliteal, and posterior tibial veins. There is a normal response of the venous system to proximal and distal augmentation an d respiration. LEFT LEG: There is normal compressibility of the deep venous system from the inguinal region to the proximal ca lf. No echogenic clot is seen in the lumen of the common femoral, femoral, popliteal, and posterior tibial veins. There is a normal response of the venous system to proximal and distal augmentation an d respiration. CONCLUSION: 1. No sonographic evidence for lower extremity DVT. Chance Gan MD on January 27, 2017 at 13:37 Board Certified Radiologist. This report was verified electronically.
--- NOTE | 2017-01-27 13:43 | RADRPT ---
EXAM DATE/TIME: 01/27/2017 12:40 [facility] COMPARISON: No previous studies available for comparison. INDICATIONS : Pre-Op cardiac surgery. MEDICAL HISTORY : Hypertension. SURGICAL HISTORY : Hernia repair. ENCOUNTER: Initial ACUITY: 1 day PAIN SCORE: 0/10 LOCATION: Bilateral legs. GREATER SAPHENOUS VEIN THIGH: PROXIMAL: Right 5 mm Left 5 mm MID: Right 4 mm Left 3 mm DISTAL: Right 1 mm Left 3 mm CALF: PROXIMAL: Right 3 mm Left 2 mm MID: Right 2 mm Left 2 mm DISTAL: Right 3 mm Left 3 mm FINDINGS: The venous system of the lower extremities are patent by color Doppler imaging. Measurements of the leg veins (in mm) are listed above. CONCLUSION: 1. Lower extremity venous mapping, as above. Chance Gan MD on January 27, 2017 at 13:41 Board Certified Radiologist. This report was verified electronically.
[2017-01-27] MEDS ORDERED: IOHEXOL 350 MG/ML 100 ML BTL (for Cath Lab) OTHER ONE (15:01)
--- NOTE | 2017-01-27 17:16 | HHI.PR ---
Subjective Remarks Follow up on patient with chest pain. Patient seen and examined. Patient s/p cardiac catheterization earlier today showing severe stenosis involving the bifurcation of left anterior descending coronary artery and moderate to severe right coronary artery disease that Dr. Garcia stated would be best served with consideration for bypass. Dr. Garcia consulted CT surgery who evaluated patient and has scheduled for CABG in the morning. RN with the surgical team is at the bedside. Patient denies any complaints at this time. Denies any chest pain or shortness of breath. Denies any nausea, vomiting or abdominal pain. Objective Vitals Vital Signs Date Time Temp Pulse Resp B/P (MAP) Pulse Ox O2 Delivery O2 Flow Rate FiO2 01/27/17 10:59 95 Room Air 01/27/17 08:45 77 01/27/17 07:37 98.0 70 20 138/88 (105) 97 01/27/17 05:16 98.2 64 18 126/73 (90) 97 01/27/17 04:15 01/27/17 03:53 64 16 154/70 (98) 98 Room Air 01/27/17 00:31 73 16 146/86 (106) 98 Room Air 01/27/17 00:23 18 99 Nasal Cannula 2.00 01/27/17 00:23 100 Nasal Cannula 2.00 01/27/17 00:00 72 16 157/98 (117) 96 Room Air 01/26/17 23:38 97 Room Air 01/26/17 23:34 99.0 84 18 153/97 (115) 96 I/O 01/26/17 01/26/17 01/26/17 01/27/17 01/27/17 01/27/17 07:00 15:00 23:00 07:00 15:00 23:00 Intake Total 500 ml Balance 500 ml Intake IV Total 500 ml Result Diagram: 01/27/17 0000 01/27/17 0000 Imaging Last Impressions Lower Extremity Ultrasound 01/27/17 0000 Signed Impressions: Service Date/Time: Friday, January 27, 2017 12:40 - CONCLUSION: 1. Lower extremity venous mapping, as above. Chance Gan MD Carotid Artery Ultrasound 01/27/17 0000 Signed Impressions: Service Date/Time: Friday, January 27, 2017 12:13 - CONCLUSION: 1. Very minimal carotid plaque without significant flow-limiting stenosis. 2. Antegrade vertebral artery flow bilaterally. Chance Gan MD Chest X-Ray 01/26/17 0604 Signed Impressions: Service Date/Time: Thursday, January 26, 2017 23:58 - CONCLUSION: No acute disease. Miguel Ángel Dillon MD Objective Remarks GENERAL: This is a well-nourished, obese patient in NAD. Awake and alert. Appears comfortable. SKIN: Warm and dry. HEAD: Atraumatic. Normocephalic. EYES: EOMI. Sclera anicteric. ENT: Nose without bleeding, purulent drainage. Airway patent. MMM. NECK: Trachea midline. CARDIOVASCULAR: Regular rate and rhythm without murmurs, gallops, or rubs. RESPIRATORY: Clear to auscultation. Breath sounds equal bilaterally. No wheezes , rales, or rhonchi. GASTROINTESTINAL: Abdomen soft, non-tender, nondistended. (+)BS x 4 quadrants. MUSCULOSKELETAL: Extremities without clubbing, cyanosis, or edema. NEUROLOGICAL: Awake and alert. Motor and sensory grossly within normal limits. Normal speech. Medications and IVs Current Medications Medications (Trade) Dose Ordered Sig/Ross Route Start Time Stop Time Status Last Admin (NS Flush) 2 ml UNSCH PRN IV FLUSH 01/27/17 02:00 (NS Flush) 2 ml BID IV FLUSH 01/27/17 09:00 (Narcan Inj) 0.4 mg UNSCH PRN IV PUSH 01/27/17 02:00 (Nitrostat Sl) 0.4 mg Q5M PRN SL 01/27/17 02:00 (Nitroglycerin 2% Oint) 1 inch Q6HR TOPICAL 01/27/17 06:00 01/27/17 06:52 (Lopressor) 25 mg Q12HR PO 01/27/17 09:00 01/27/17 08:54 Sodium Chloride 1,000 ml @ 30 mls/hr Q24H IV 01/27/17 08:09 02/01/17 08:08 01/27/17 09:04 (Versed Inj) 1 mg SORT WORKER IV PUSH 01/27/17 08:15 01/31/17 08:14 (Lipitor) 40 mg HS PO 01/27/17 21:00 (Aspirin Chew) 81 mg DAILY CHEW 01/27/17 11:30 Papaverine HCl 60 mg/Nitroglycerin 100 mcg/Diltiazem HCl 100 mg/Sodium Chloride 100 ml @ 0 mls/hr SORT WORKER IRRIGATION 01/27/17 12:00 02/03/17 11:59 Cefazolin Sodium 500 mg/Sodium Chloride 505 ml @ 0 mls/hr SORT WORKER IRRIGATION 01/27/17 12:00 02/03/17 11:59 Cefazolin Sodium/ Dextrose 50 ml @ 150 mls/hr SORT WORKER IV 01/27/17 12:00 02/03/17 11:59 (Lopressor) 12.5 mg SORT WORKER PO 01/27/17 12:00 02/03/17 11:59 (Bactroban Nasal 2% Oint) 1 applic BID EACH NARE 01/27/17 12:00 02/01/17 11:59 (Hibiclens 4% Top Soln) 1 applic SORT WORKER TOPICAL 01/27/17 12:00 02/03/17 11:59 Insulin Human Regular 100 units/ Sodium Chloride 100 ml @ 0 mls/hr SORT WORKER PRN IV 01/27/17 12:00 02/03/17 11:59 (Pill Splitter) 1 ea UNSCH PRN OTHER 01/27/17 13:15 A/P Problem List: (1) NSTEMI (non-ST elevated myocardial infarction) ICD Code: I21.4 - Non-ST elevation (NSTEMI) myocardial infarction (2) HTN (hypertension) ICD Code: I10 - Essential (primary) hypertension Assessment and Plan 41 y/o male with a history of HTN (not on any medication for 5 years) presented to the ED with complaints of chest pain NSTEMI CAD - Cardiology consulted, appreciate their assistance. Patient underwent cardiac catheterization earlier today showing severe stenosis involving the bifurcation of the left anterior descending coronary artery and moderate to severe right coronary artery disease best served with consideration for bypass per cardiology. - CT surgery consulted. CABG recommended. Patient scheduled for surgery in am. - continue ASA daily - Morphine IV prn - continue on Nitro ointment - continue on BB - continue on statin - Continuous cardiac monitoring - follow up on 2D echo results - Carotid ultrasound showed minimal carotid plaque without flow-limiting stenosis HTN, acute, patient has been off medications for 5 years - BP now well controlled - continue on Lopressor 25mg BID - Monitor BP Hypertriglyceridemia - Started on Lipitor 40mg daily. Continue. Elevated blood sugar - random glucose 138 - ?diabetes - Follow up on hemoglobin A1c DVT prophylaxis - Bilateral SCD/EUNICE hose Discussed with patient and Noa Moffett Jan 27, 2017 17:16
[2017-01-27 18:10] LABS: AUTOMATED NEUTROPHIL # 8.7 TH/MM3 (1.8-7.7); BASOPHIL # 0.1 TH/MM3 (0-0.2); BASOPHIL % 0.5 % (0.0-2.0); EOSINOPHIL # 0.1 TH/MM3 (0-0.4); EOSINOPHIL % 0.8 % (0.0-4.0); HEMATOCRIT 46.1 % (39.0-51.0); HEMO FLAGS DIFF FINAL; LYMPH % 21.1 % (9.0-44.0); LYMPHOCYTE # 2.7 TH/MM3 (1.0-4.8); MEAN CELL VOLUME 89.5 FL (80.0-100.0); MEAN CORPUSCULAR HEMOGLOBIN 30.5 PG (27.0-34.0); MEAN CORPUSCULAR HGB CONC 34.1 % (32.0-36.0); MONO % 9.4 % (0.0-8.0); NEUT % 68.2 % (16.0-70.0); PLATELET COUNT 222 TH/MM3 (150-450); RED BLOOD COUNT 5.16 MIL/MM3 (4.50-5.90); RED CELL DISTRIBUTION WIDTH 13.8 % (11.6-17.2); WHITE BLOOD COUNT 12.7 TH/MM3 (4.0-11.0)
[2017-01-27 18:17] LABS: APTT (PATIENT) 33.3 SEC (24.3-30.1); PROTHROMBIN TIME - PATIENT 10.8 SEC (9.8-11.6)
[2017-01-27 18:23] LABS: ANION GAP 9 MEQ/L (5-15); AST (GOT) 35 U/L (15-37); BICARBONATE 24.3 MEQ/L (21.0-32.0); BLOOD UREA NITROGEN 14 MG/DL (7-18); CHLORIDE 105 MEQ/L (98-107); GLOMERULAR FILTRATION RATE 125 ML/MIN (>89); POTASSIUM 3.7 MEQ/L (3.5-5.1); SODIUM (NA) 138 MEQ/L (136-145)
[2017-01-27 18:25] LABS: ALT (GPT) 45 U/L (12-78)
[2017-01-27 18:26] LABS: ALKALINE PHOSPHATASE 87 U/L (45-117); TOTAL BILIRUBIN ADULT 0.5 MG/DL (0.2-1.0)
[2017-01-27 19:11] LABS: HEMOGLOBIN A1a 1.3 %; HEMOGLOBIN A1b 0.9 %; HEMOGLOBIN Ao 84.7 %; HEMOGLOBIN F 1.3 %; HEMOGLOBIN LA1C 1.9 %; HEMOGLOBIN P3 3.6 %
[2017-01-27] MEDS ORDERED: ALPRAZolam 0.25 MG TAB PO ONE (20:45)
[2017-01-27] MEDS ORDERED: ACETAMINOPHEN 325 MG TAB PO PRN (20:45)
[2017-01-27] MEDS ORDERED: SODIUM CHLORIDE 0.9% FLUSH 10 ML FLUSH IV FLUSH SCH (21:00)
[2017-01-27] MEDS: ATORVASTATIN 40 MG TAB PO SCH (21:06)
[2017-01-27] MEDS: MUPIROCIN 2% OINT 1 APPLIC/GM SYR EACH NARE SCH (21:08)
[2017-01-27 21:41] LABS: BLOOD, URINE SMALL (NEG); COMMENT (UR) CULT NOT INDICATED; CULTURE IF INDICATED CULT NOT INDICATED; GLUCOSE,URINE NEG (NEG); KETONE, URINE NEG (NEG); NITRITE,URINE NEG (NEG); PH, URINE 6.5 (5.0-8.5); URINE COLOR YELLOW (YELLW/STRAW)
[2017-01-28] VITALS (19 sets, daily range): BP systolic 91–149; BP diastolic 50–91; PULSE 56–94; RESP 14–20; TEMP 98–99; O2SAT 90–98
[2017-01-28] MEDS: NITROGLYCERIN 2% OINT 1 GM PACKET TOPICAL SCH ×2 (04:50)
[2017-01-28 05:29] LABS: AUTOMATED NEUTROPHIL # 6.5 TH/MM3 (1.8-7.7); BASOPHIL # 0.1 TH/MM3 (0-0.2); BASOPHIL % 0.5 % (0.0-2.0); EOSINOPHIL # 0.1 TH/MM3 (0-0.4); EOSINOPHIL % 1.1 % (0.0-4.0); HEMATOCRIT 46.5 % (39.0-51.0); HEMO FLAGS DIFF FINAL; LYMPH % 27.3 % (9.0-44.0); LYMPHOCYTE # 2.9 TH/MM3 (1.0-4.8); MEAN CELL VOLUME 89.4 FL (80.0-100.0); MEAN CORPUSCULAR HEMOGLOBIN 30.8 PG (27.0-34.0); MEAN CORPUSCULAR HGB CONC 34.5 % (32.0-36.0); MONO % 10.9 % (0.0-8.0); NEUT % 60.2 % (16.0-70.0); PLATELET COUNT 215 TH/MM3 (150-450); RED CELL DISTRIBUTION WIDTH 13.1 % (11.6-17.2); WHITE BLOOD COUNT 10.8 TH/MM3 (4.0-11.0)
[2017-01-28 05:51] LABS: POTASSIUM 3.8 MEQ/L (3.5-5.1)
[2017-01-28] MEDS ORDERED: VANCOMYCIN HCL 1000 MG VIAL ONE (06:40)
[2017-01-28] MEDS ORDERED: methylPREDNISolone SOD SUCC 125 MG/2 ML VIAL ONE (06:40)
[2017-01-28] MEDS ORDERED: HEPARIN SODIUM - SQ 10,000 UNITS/ML VIAL ONE (06:40)
[2017-01-28] MEDS ORDERED: ceFAZolin 2 GM PREMIX 50 ML ONE (06:40)
[2017-01-28] MEDS ORDERED: CARDIOPLEGIC IRR 2,000 ML ONE (07:16)
[2017-01-28] MEDS ORDERED: HEPARIN SODIUM - IV 10,000 UNITS/10 ML VIAL ONE (07:17)
[2017-01-28] MEDS ORDERED: POTASSIUM CHLORIDE 40 MEQ/20 ML VIAL ONE (07:17)
[2017-01-28] MEDS ORDERED: SODIUM BICARBONATE 8.4% INJ 100 ML ONE (07:18)
[2017-01-28] MEDS ORDERED: MANNITOL INJ 100 ML ONE (07:18)
[2017-01-28] MEDS ORDERED: ALBUMIN 25% INJ 50 ML IV ONE (07:19)
[2017-01-28] MEDS: CEFAZOLIN INJ 500 MG in SODIUM CHLORIDE 0.9% IRR BTL 500 ML IRRIGATION SCH ×2 (08:54→08:58)
[2017-01-28] MEDS: MUPIROCIN 2% OINT 1 APPLIC/GM SYR EACH NARE SCH ×2 (09:00→21:00)
[2017-01-28] MEDS: ASPIRIN 81 MG CHEW TAB CHEW SCH (09:00)
[2017-01-28] MEDS: SODIUM CHLORIDE 0.9% FLUSH 10 ML FLUSH IV FLUSH SCH ×2 (09:00→21:00)
[2017-01-28] MEDS ORDERED: LACTATED RINGER'S 1000 ML INJ 500 ML IV PRN (11:24)
[2017-01-28] MEDS ORDERED: INSULIN REGULAR (IV INFUSION) 100 UNITS in SODIUM CHLORIDE 0.9% INJ 99 ML IV PRN (11:30)
[2017-01-28] MEDS ORDERED: CLEVIDIPINE INJ 50 ML IV PRN (11:30)
[2017-01-28] MEDS ORDERED: ACETAMINOPHEN 325 MG TAB PO PRN (11:30)
[2017-01-28] MEDS ORDERED: DEXMEDETOMIDINE INJ 200 MCG in SODIUM CHLORIDE 0.9% INJ 50 ML IV PRN (11:30)
[2017-01-28] MEDS ORDERED: CALCIUM CHLORIDE 10% 1 GRAM/10 ML VIAL IV PUSH PRN (11:30)
[2017-01-28] MEDS ORDERED: ONDANSETRON HCL 4 MG/2 ML VIAL IV PUSH PRN (11:30)
[2017-01-28] MEDS ORDERED: POTASSIUM CHLORIDE 20 MEQ CONTROLLED RELEASE TAB PO PRN ×2 (11:30)
[2017-01-28] MEDS ORDERED: ACETAMINOPHEN 650 MG SUPP RECTAL PRN (11:30)
[2017-01-28] MEDS ORDERED: RESP: RACEPINEPHRINE 2.25% 0.5 ML NEB NEB PRN ×2 (11:30→15:00)
[2017-01-28] MEDS ORDERED: SODIUM BICARBONATE 8.4% SOLN 50 MEQ/50 ML VIAL IV PUSH PRN ×2 (11:30)
[2017-01-28] MEDS ORDERED: CALCIUM CHLORIDE INJ 1 GM in SODIUM CHLORIDE 0.9% INJ 100 ML IV PRN (11:30)
[2017-01-28] MEDS ORDERED: MORPHINE SULFATE 4 MG/ML INJ IV PUSH PRN (11:30)
[2017-01-28] MEDS ORDERED: ALBUMIN 5% INJ 250 ML IV PRN (11:30)
[2017-01-28] MEDS ORDERED: oxyCODONE/ACETAMINOPHEN 5 MG/325 MG TAB PO PRN (11:30)
[2017-01-28] MEDS ORDERED: DEXTROSE 50% IN WATER 50 ML VIAL(D50) IV PUSH PRN (11:30)
[2017-01-28] MEDS ORDERED: MAGNESIUM SULFATE INJ 2 GM in SODIUM CHLORIDE 0.9% INJ 100 ML IV PRN ×4 (11:30)
[2017-01-28] MEDS ORDERED: RESP: ALBUTEROL 2.5 MG/IPRATROPIUM 0.5 MG NEB (PRN) NEB ×2 (11:30→14:00)
[2017-01-28] MEDS ORDERED: hydrALAZINE HCL 20 MG/ML VIAL IV PUSH PRN (11:30)
[2017-01-28] MEDS ORDERED: METOPROLOL TARTRATE 5 MG/5 ML VIAL IV PUSH PRN (11:30)
[2017-01-28] MEDS ORDERED: POTASSIUM CHLOR 20 MEQ PREMIX 100 ML IV PRN ×3 (11:30)
[2017-01-28] MEDS ORDERED: MEPERIDINE HCL 25 MG/ML VIAL IV PUSH PRN (11:30)
[2017-01-28] MEDS ORDERED: DEXMEDETOMIDINE HCL 200 MCG/2 ML VIAL ONE (11:32)
[2017-01-28] MEDS ORDERED: SODIUM CHLORIDE 0.9% INJ 50 ML ONE (11:33)
[2017-01-28] MEDS ORDERED: VECURONIUM BROMIDE 10 MG VIAL IV ONE (12:00)
[2017-01-28] MEDS ORDERED: MAGNESIUM SULFATE 1 GM/2 ML VIAL IV ONE (12:00)
[2017-01-28] MEDS ORDERED: NORMOSOL R INJ 1,000 ML IV ONE (12:00)
[2017-01-28] MEDS ORDERED: ARTIFICIAL TEARS OPTH OINT 3.5 APPLIC/3.5 GM TUBO ONE (12:00)
[2017-01-28] MEDS ORDERED: PROPOFOL 200 MG/20 ML AMP IV ONE (12:00)
[2017-01-28] MEDS ORDERED: LACTATED RINGER'S 1000 ML INJ 2,000 ML IV ONE (12:00)
[2017-01-28] MEDS ORDERED: PHENYLEPH/NS 1000 MCG/10 ML SYR IV ONE (12:00)
[2017-01-28] MEDS ORDERED: ePHEDrine/NS 25 MG/5 ML SYR IV ONE ×2 (12:00)
[2017-01-28] MEDS ORDERED: CALCIUM CHLORIDE 10% SOLN 1 GRAM/10 ML SYR IV ONE (12:00)
[2017-01-28] MEDS ORDERED: Post-op Orders (for Pharmacy) MISC OTHER ONE (12:00)
[2017-01-28] MEDS ORDERED: PROTAMINE SULFATE 250 MG/25 ML VIAL IV ONE (12:00)
[2017-01-28] MEDS ORDERED: NEOSTIGMINE 3 MG/3 ML SYR IV ONE (12:00)
[2017-01-28] MEDS ORDERED: SODIUM CHLORID 0.9% 500 ML INJ 500 ML IV ONE (12:00)
[2017-01-28] MEDS ORDERED: GLYCOPYRROLATE 1 MG/5 ML SYRINGE IV PUSH ONE (12:00)
[2017-01-28] MEDS ORDERED: HEPARIN SODIUM - SQ 10,000 UNITS/ML VIAL SQ ONE (12:00)
[2017-01-28] MEDS ORDERED: AMINOCAPROIC ACID INJ 250 MG/ML 20 ML VIAL IV ONE (12:00)
[2017-01-28] MEDS ORDERED: NITROGLYCERIN 50 MG/DEXTROSE 5% SOLN 250 ML BTL IV ONE (12:00)
[2017-01-28] MEDS ORDERED: PHENYLEPHRINE HCL 10 MG/ML VIAL IV ONE (12:00)
[2017-01-28] MEDS ORDERED: SODIUM CHLOR 0.9% 250 ML INJ 500 ML IV ONE (12:00)
--- NOTE | 2017-01-28 12:03 | PD.OP ---
cc: Lucero Bunn MD; Abrahan Garcia MD Operative Report Date of Surgery: Jan 28, 2017 Preoperative Diagnosis: (1) NSTEMI (non-ST elevated myocardial infarction) (2) CAD (coronary artery disease) Postoperative Diagnosis: same Procedure: CABG x 3 COWART to LAD - good SVG to D1 - good SVG to PDA - good EVH Anesthesia: Dr. Galeas Surgeon: Lucero Bunn Filter Press Tender(s): Miguel Ángel SAWANT Operation and Findings: The risks, benefits, complications, treatment options, and expected outcomes were discussed with the patient. The possibilities of reaction to medication, pulmonary aspiration, perforation of viscus, bleeding, recurrent infection, the need for additional procedures, failure to diagnose a condition, and creating a complication requiring transfusion or operation were discussed with the patient. The patient concurred with the proposed plan, giving informed consent. The site of surgery properly noted/marked. The patient was taken to Operating Room, identified as Steven Crabtree and the procedure verified as CABG, EVH. A Time Out was held and the above information confirmed. Standard monitoring lines and Castro catheter were placed. General anesthesia was induced. The patient was prepped and draped in a sterile fashion. A median sternotomy was performed and electrocautery was used to obtain hemostasis. The left internal mammary artery was procured as a pedicle from the 7th rib to the 1st rib in the usual manner. Simultaneously left greater saphenous vein was procured from the left leg using a minimally invasive endoscopic technique. The vein was prepared for anastomosis and the leg wound was irrigated and closed in 2 layers. The pericardium was opened and a pericardial sling was created using interrupted 0 silk sutures. The patient was heparinized for cardiopulmonary bypass and the distal mammary pedicle was instrumented for anastomosis. The heart was instrumented for cardiopulmonary bypass in the usual manner. Antegrade blood cardioplegia was employed. The patient was placed on cardiopulmonary bypass. An aortic cross-clamp was applied and the heart was arrested using cold blood cardioplegia. Antegrade cardioplegia was administered after he each anastomosis. After adequate arrest, the distal right coronary circulation was investigated and the PDA was opened with a [place] blade and found to be a 1.5 millimeter good target. Saphenous vein was approximated to the PDA artery using a running 7 0 Prolene suture. The graft was measured for length and orientation and the proximal anastomosis was constructed to the ascending aorta using a running 5 0 Prolene suture after creating an aortotomy with a 5 millimeter punch. The 1st diagonal artery was then opened with a [place] blade and found to be a 1.5 millimeter good target. Saphenous vein was approximated to the D1 artery using a running 7 0 Prolene suture. The graft was measured for length and orientation and was suspended from the pericardium. The distal LAD was opened with a [place] blade and found to be a 1.5 millimeter good target. The left internal mammary artery was approximated to the LAD using a running 7 0 Prolene suture. The pedicle was attached to the epicardium using interrupted 5 0 silk suture. The patient was systemically rewarmed and received a hotshot dose of warm blood cardioplegia. The aorta was vented and the proximal anastomosis to the D1 graft was accomplished using a running 5 0 Prolene suture after creating an aortotomy was a 5 millimeter punch. The cross-clamp was removed and all proximal and distal anastomoses were examined for hemostasis. The patient was weaned from cardiopulmonary bypass. Protamine was given. There was no adverse reaction. Decannulation was carried out without incident. Wound was checked for hemostasis which was obtained using electrocautery. A 36 English mediastinal and 32 English left pleural chest was were placed and secured to the skin with 0 silk suture. The sternum was closed with stainless steel wire. The fascia was closed with 1. PDS. The subcutaneous tissue was closed using a running 2-0 Vicryl suture. The skin was closed with 4-0 Monocryl. Sterile dressings were placed. At the end of the operation, all sponge, instruments, and needle counts were correct. The patient was transferred to the CVICU in stable condition. Findings: Good distal targets. Pericardium was closed XC: 51 min CPB: 62 min Drains: mediastinal x 1 pleural x 1 Specimen - left internal mammary lymph node Complications: none Disposition: to CVICU in stable condition Lucero Bunn MD Jan 28, 2017 12:03
[2017-01-28 12:36] LABS: BLOOD GAS CARBOXYHEMOGLOBIN 1.7 % (0-4); BLOOD GAS HCO3 22 mmol/L (22-26); BLOOD GAS METHEMOGLOBIN 1.2 % (0-2); BLOOD GAS O2 HGB SATURATION 91 % (90-100); BLOOD GAS OXYGEN CONTENT 16.5 Vol % (12.0-20.0); BLOOD GAS PCO2 45 mmHg (38-42); BLOOD GAS PO2 78 mmHg (61-120); BLOOD GAS TOTAL HGB 12.8 G/DL (12.0-16.0); CRITICAL VALUE NO; OXYGEN DEVICE VENTILATOR; TEMP CORR TO 98.6
[2017-01-28 12:37] LABS: DRAW SITE ART LINE; FIO2 80 %; STAT NO; VENT SETTINGS IMV14/700/PS10
--- NOTE | 2017-01-28 12:45 | RADRPT ---
EXAM DATE/TIME: 01/28/2017 12:27 [facility] COMPARISON: CHEST SINGLE AP, January 26, 2017, 23:58. INDICATIONS : Post op heart surgery. MEDICAL HISTORY : Hypertension. SURGICAL HISTORY : Hernia repair. ENCOUNTER: Subsequent ACUITY: 1 day PAIN SCORE: Non-responsive. LOCATION: Bilateral chest FINDINGS: Support apparatus in good position. Negative for pneumothorax. Mild compensated cardiomegaly. CONCLUSION: Postop CABG mild compensated cardiomegaly negative for pneumothorax. Jacob Mauricio MD FACR on January 28, 2017 at 12:42 Board Certified Radiologist. This report was verified electronically.
[2017-01-28] MEDS ORDERED: PHENYLEPHRINE 40 MG in D5W 500 ML IV PRN (13:00)
[2017-01-28] MEDS ORDERED: TERBUTALINE INJ 1 MG/ML AMP SQ PRN (13:00)
[2017-01-28 13:15] LABS: AUTOMATED NEUTROPHIL # 17.6 TH/MM3 (1.8-7.7); BASOPHIL % 0.1 % (0.0-2.0); EOSINOPHIL # 0.1 TH/MM3 (0-0.4); EOSINOPHIL % 0.5 % (0.0-4.0); HEMATOCRIT 38.4 % (39.0-51.0); HEMO FLAGS DIFF FINAL; LYMPHOCYTE # 1.9 TH/MM3 (1.0-4.8); MEAN CELL VOLUME 90.8 FL (80.0-100.0); MEAN CORPUSCULAR HEMOGLOBIN 30.2 PG (27.0-34.0); MEAN CORPUSCULAR HGB CONC 33.2 % (32.0-36.0); MONO % 7.7 % (0.0-8.0); NEUT % 82.7 % (16.0-70.0); PLATELET COUNT 175 TH/MM3 (150-450); RED BLOOD COUNT 4.23 MIL/MM3 (4.50-5.90); RED CELL DISTRIBUTION WIDTH 13.3 % (11.6-17.2); WHITE BLOOD COUNT 21.3 TH/MM3 (4.0-11.0)
[2017-01-28 13:28] LABS: BICARBONATE 22.4 MEQ/L (21.0-32.0); POTASSIUM 4.2 MEQ/L (3.5-5.1)
[2017-01-28] MEDS: ACETAMINOPHEN 1000 MG/100 ML 100 ML IV SCH ×2 (13:56→21:17)
[2017-01-28] MEDS: SODIUM CHLOR 0.9% 1000 ML INJ 1,000 ML IV SCH (15:06)
--- NOTE | 2017-01-28 15:30 | HHI.FF ---
Face to Face Verification Diagnosis: (1) S/P CABG x 3 (2) HTN (hypertension) (3) NSTEMI (non-ST elevated myocardial infarction) (4) CAD (coronary artery disease) (5) Hyperlipemia Home Health Nursing Order: Signs/symptoms of disease process Medication education-adverse effect Wound care and dressing changes Nursing assessment with vital signs Instructions: PREVENA Single Use Negative Wound Therapy System Caregiver Instruction Sheet 1. A Prevena dressing system was applied to the chest incision during surgery , to promote wound healing. It works via a suction device (negative pressure wound therapy) to remove low to moderate levels of exudate (drainage) and infectious materials. We recommend that the device stay in place for up to seven days, from day of surgery. 2. Day of Surgery__01/28/17 Day of Removal __02/04/17 3. The dressing should only be removed by a health youth care worker. Please arrange removal of device to coincide with Home Health visit and or with Nursing staff at Rehab 4. If skin reddening or irritation of skin occurs, or excessive drainage, please notify the Cardiovascular Surgeons office at [phone]. 5. Light showering is permissible; however the pump should be disconnected and placed in safe location, where it will not get wet. The dressing should not be exposed to direct spray or submerged in water. No bath tub / shower only. Ensure the end of the tubing attached to the dressing is facing down so that water does not enter the top of the tube. 6. To remove Prevena dressing: press purple button to turn off device / remove the suction. Then disconnect the tubing from the pump. The fixation strips should be stretched away from the skin and the dressing lifted at one corner and peeled back until it has been fully removed. 7. After removal, it is ok to shower daily using liquid dial soap and clean wash cloth, rinse and pat dry, and leave incision open to air dry. For any concerns regarding Prevena dressing, and or wounds, please contact Gisel Harley, patient navigator at [phone] or notify the Cardiovascular Surgeons office at [phone]. Heart and Vascular Surgery patients *Special attention to sternal dressing Mandatory frequency Assess and evaluation, 4 days in a row The next week 3X week 2 times a week for 4 weeks 1 time a week for 5 weeks Schedule Heart and Vascular patients for full 60 day certification period Initial visit Review Open Heart Surgery Discharge Instructions (Sternal precautions, Activity, Elastic hose, Incision care, Driving, Incentive spirometry, Smoking, [place], Work and other) Need Betadine to paint incision Medication reconciliation Importance of follow up care/ check on appointments Make calendar record temperature daily When to call [facility] at Home nurse, review instructions, phone list Incentive Spirometry, demonstration Visit 1- Begin discharge instruction for patient family and/ or caregiver using teach back method- Signs and symptoms of infection Disease characteristics Medicines and side effects Foods and nutrition/ appetite Infection control/ hand washing/ hygiene Visit 2- Continue teaching Discharge instructions- include additional information on smoking cessation , sternal dressing (sternal vac) Visit 3- Continue teaching- Cough and deep breathing, incision monitoring. Choose my plate Visit 4- Continue teaching- Discuss limitations Discuss how they are feeling Discuss progress toward goals Remaining visits- continue teaching and monitoring Incentive spirometry Q1 hr x 10, while awake, also use acapella device hourly whole awake Sternal Breast Bone Precautions: NO pushing or pulling, ( pt must use sternal pillow to support chest with all activities and with coughing ( takes up to 3 months breast bone to heal ) Daily incision care: ok to shower daily, no tub bath. Wash all incisions with liquid dial soap, clean wash cloth to each site, rinse and pat dry. Observe for any signs of infection, such as drainage which is dark yellow, son, green or foul smelling. Immediately report to the surgeon any drainage from the chest incision, or legs, and for any abnormal drainage from the chest tube sites. Notify surgeon if any temp >101.5 degrees F. When specialty dressing removed/ or if you do not have one, continue to shower daily as above, then rinse and pat incision dry and paint with betadine daily x 5 days. Allow steri strips to fall off if you have any. Avoid lotions, creams, salves, oils, etc. for the first month Please see attached forms for additional instructions regarding post Open Heart specialty wound vacuum dressings. LKAESHA or Prevena , Dressing to be removed by Nursing staff on ___02/04/17____ For Dr. Bunn patients , please obtain CBC, BMP, PA & Lat CXR in 2 weeks, results to Dr. Bunn ( prescription will be given) ( ) (Tele: [phone]) , F/U appointment: as per [place] instructions: PCP in 2 weeks, CV surgeon 2 weeks, Tower Erector 3-4 weeks For any questions regarding incisions/ dressing / meds / post op care or above Symptoms, Thursday 8am-5pm Heart & Vascular Surgery Office ( Dr. Swift & Dr. Bunn), After Hours / Nights (5pm -8am) Weekends and Holidays Please call [facility] Card[facility] ([facility]) Charge Nurse I have seen patient Steven Crabtree on 01/28/17. My clinical findings support the need for the requested home health care services because: Deconditioned w/ increased weakness I certify that my clinical findings support that this patient is homebound because: Post-op weakness Priscila Wong Jan 28, 2017 15:30
[2017-01-28] MEDS ORDERED: RESP: ALBUTEROL 2.5 MG/IPRATROPIUM 0.5 MG NEB (SCH) NEB (16:00)
[2017-01-28] MEDS: ceFAZolin 2 GM PREMIX 50 ML IV SCH (17:41)
[2017-01-28] MEDS: KETOROLAC TROMETHAMINE 30 MG/ML (IVP) VIAL IV PUSH PRN (18:53)
[2017-01-28] MEDS ORDERED: AMIODARONE 200 MG TAB PO SCH (21:00)
[2017-01-28] MEDS: ATORVASTATIN 40 MG TAB PO SCH (21:16)
[2017-01-28] MEDS: RESP: ALBUTEROL 2.5 MG/IPRATROPIUM 0.5 MG NEB (SCH) NEB (21:23)
[2017-01-29] VITALS (16 sets, daily range): BP systolic 91–163; BP diastolic 49–96; PULSE 90–122; RESP 16–22; TEMP 97.9–99.3; O2SAT 90–97
[2017-01-29] MEDS: ceFAZolin 2 GM PREMIX 50 ML IV SCH (00:56)
[2017-01-29] MEDS: KETOROLAC TROMETHAMINE 30 MG/ML (IVP) VIAL IV PUSH PRN ×3 (00:56→18:40)
[2017-01-29] MEDS: ACETAMINOPHEN 1000 MG/100 ML 100 ML IV SCH (02:09)
[2017-01-29] MEDS: RESP: ALBUTEROL 2.5 MG/IPRATROPIUM 0.5 MG NEB (SCH) NEB (03:53)
--- NOTE | 2017-01-29 04:59 | RADRPT ---
EXAM DATE/TIME: 01/29/2017 04:08 [facility] COMPARISON: CHEST SINGLE AP, January 28, 2017, 12:27. INDICATIONS : Shortness of breath, possible pulmonary disease. MEDICAL HISTORY : Hypertension. SURGICAL HISTORY : CABG. Hernia repair ENCOUNTER: Subsequent ACUITY: 2 days PAIN SCORE: Non-responsive. LOCATION: Bilateral chest FINDINGS: There is been interval extubation and removal of nasogastric tube. Right central line and thoracostom y tubes remain in place. There has been slight interval decrease in lung volumes. Cardiac contour is grossly stable. CONCLUSION: Interval extubation with slight interval deterioration in aeration Miguel Ángel Dillon MD on January 29, 2017 at 4:57 Board Certified Radiologist. This report was verified electronically.
[2017-01-29] MEDS ORDERED: PANTOPRAZOLE SOD 40 MG DELAYED RELEASE TAB PO SCH (06:00)
[2017-01-29] MEDS ORDERED: GLUCAGON 1 MG/ML VIAL OTHER PRN (08:45)
[2017-01-29] MEDS ORDERED: BISACODYL 10 MG SUPP RECTAL PRN (08:45)
[2017-01-29] MEDS ORDERED: DEXTROSE 50% IN WATER 50 ML VIAL(D50) IV PUSH PRN (08:45)
[2017-01-29] MEDS ORDERED: SOD PHOSPHATE/SOD BIPHOSPHATE (ADULT) ENEMA 133ML RECTAL PRN (08:45)
--- NOTE | 2017-01-29 08:56 | PD.CAR.PN ---
CVT Progress Note Subjective/Hospital Course: 41 y/o male presents with chest pain, SOB, and diaphoresis. He experienced chest pain and pressure radiating to both arms which awoke him from sleep. He presented to the ED and ruled-in for NSTEMI. He underwent cardiac cath today and was found to have high-grade LAD stenosis at the bifurcation of a diagonal and a 70% RCA stenosis. He has diffuse CAD. PMH: Hx HTN , no meds x 5 years surgery: CABG x 3 01/28 COWART to LAD - good SVG to D1 - good SVG to PDA - good EVH extubated after surgery, crystalloid 200cc, cell saver 1000cc 01/29 pt very painful, toradol added to percocet gentle diuresis , BB added , on ASA, statin will need aggressive pulm toileting OOB, ambulate Objective: GENERAL: SKIN: Warm and dry. prevena to chest , ayala wrap to left leg HEAD: Normocephalic. EYES: No scleral icterus. No injection or drainage. NECK: Supple, trachea midline. No JVD or lymphadenopathy. CARDIOVASCULAR: Regular rate and rhythm without murmurs, gallops, or rubs. RESPIRATORY: Breath sounds equal bilaterally. No accessory muscle use. chest tube to wall suction, no air leak / drained 370cc/ 12 hrs GASTROINTESTINAL: Abdomen soft, non-tender, nondistended. MUSCULOSKELETAL: No cyanosis, or edema. BACK: Nontender without obvious deformity. No CVA tenderness. Vital Signs Date Time Temp Pulse Resp B/P (MAP) Pulse Ox O2 Delivery O2 Flow Rate FiO2 01/29/17 07:00 98.8 108 18 158/69 (98) 96 118/80 (93) 01/29/17 06:52 95 Simple Mask 10.00 01/29/17 04:01 95 Simple Mask 8.00 01/29/17 04:00 95 Simple Mask 8.00 01/29/17 03:00 90 01/29/17 03:00 98.9 90 18 144/82 (102) 97 135/82 (99) 01/29/17 03:00 97 Partial Non-Rebreather 10.00 01/29/17 01:30 97 Partial Non-Rebreather 10.00 01/28/17 23:00 99.0 94 18 139/79 (99) 98 101/77 (85) 01/28/17 23:00 98 Partial Non-Rebreather 15.00 01/28/17 23:00 94 01/28/17 22:05 98 Partial Non-Rebreather 15.00 01/28/17 21:40 97 Partial Rebreather 15.00 01/28/17 19:00 98 Non-Rebreather 15.00 01/28/17 19:00 99.0 88 20 124/78 (93) 98 104/69 (81) 01/28/17 19:00 88 01/28/17 18:21 84 01/28/17 16:45 98 Non-Rebreather 15.00 01/28/17 16:43 97 Non-Rebreather 100 01/28/17 16:00 77 01/28/17 15:05 91/50 01/28/17 15:00 98.8 76 16 96 102/60 (74) 01/28/17 15:00 77 01/28/17 15:00 Simple Mask 10.00 01/28/17 14:31 92 Mask 10 01/28/17 14:10 93 Mechanical Ventilator 50 01/28/17 14:00 94 Mechanical Ventilator 60 01/28/17 13:50 92 Mechanical Ventilator 70 01/28/17 13:20 93 70 01/28/17 12:50 50 01/28/17 12:30 96 Mechanical Ventilator 80 01/28/17 12:15 65 01/28/17 12:15 90 Mechanical Ventilator 60 01/28/17 12:15 60 01/28/17 12:15 65 01/28/17 12:15 91 80 01/28/17 12:15 98.0 65 14 100/58 (72) 90 91/50 (64) Result Diagram: 01/28/17 1230 01/28/17 1230 Telemetry: sinus tach (1) NSTEMI (non-ST elevated myocardial infarction) (2) S/P CABG x 3 Plan: ASA, statin , BB amiodarone pain control OOB, ambulate pulm toileting (3) HTN (hypertension) (4) Tobacco abuse Plan: smoking cessation (5) CAD (coronary artery disease) (6) Hyperlipemia Plan: statin Problem Qualifiers (1) CAD (coronary artery disease): Qualified Codes: I25.110 - Atherosclerotic heart disease of [place] coronary artery with unstable angina pectoris (2) Hyperlipemia: Qualified Codes: E78.5 - Hyperlipidemia, unspecified Priscila Wong Jan 29, 2017 08:56
[2017-01-29] MEDS ORDERED: ASPIRIN 81 MG CHEW TAB PO SCH (09:00)
[2017-01-29] MEDS ORDERED: MULTIVITAMIN INJ 10 ML, THIAMINE INJ 500 MG, FOLIC ACID INJ 1 MG in SODIUM CHLORID 0.9%... IV SCH (09:00)
[2017-01-29] MEDS ORDERED: RESP: ALBUTEROL 2.5 MG/IPRATROPIUM 0.5 MG NEB (PRN) NEB (09:00)
[2017-01-29] MEDS: ASPIRIN 81 MG CHEW TAB CHEW SCH (09:06)
[2017-01-29] MEDS: MULTIVITAMINS/MINERALS THERAPEUTIC TAB PO SCH (09:43)
[2017-01-29] MEDS: oxyCODONE/ACETAMINOPHEN 5 MG/325 MG TAB PO PRN ×3 (09:44→21:11)
[2017-01-29] MEDS: MAGNESIUM HYDROXIDE SUSP 30 ML CUP PO SCH (09:44)
[2017-01-29] MEDS ORDERED: METOPROLOL TARTRATE 25 MG TAB PO SCH (10:00)
[2017-01-29] MEDS ORDERED: POTASSIUM CHLORIDE 20 MEQ CONTROLLED RELEASE TAB PO ONE ×2 (10:00→16:30)
[2017-01-29] MEDS ORDERED: FUROSEMIDE 40 MG/4 ML VIAL IV PUSH ONE ×3 (10:00→14:20)
[2017-01-29] MEDS: INSULIN ASPART SUPPLEMENTAL SCALE SQ SCH ×4 (10:00→22:00)
[2017-01-29] MEDS: AMIODARONE 200 MG TAB PO SCH ×2 (10:29→21:11)
[2017-01-29] MEDS: SODIUM CHLORIDE 0.9% FLUSH 10 ML FLUSH IV FLUSH SCH ×2 (10:35→21:10)
[2017-01-29] MEDS ORDERED: KETOROLAC TROMETHAMINE 30 MG/ML (IVP) VIAL IV PUSH SCH (12:00)
[2017-01-29] MEDS ORDERED: METOPROLOL TARTRATE 25 MG TAB PO ONE (13:45)
--- NOTE | 2017-01-29 13:47 | EKG ---
Date Performed: 01/29/2017 Time Performed: 03:13:06 PTAGE: 41 years EKG: Sinus rhythm Possible inferior infarct - age undetermined Septal and lateral ST-T changes may be due to myocardia l ischemia Abnormal ECG Compared to PREVIOUS TRACING , the patient has developed diagnostic criteria for an inferior wall peri cardial infarction. There has been an increase in the ischemic appearing septal T-wave changes. Clini arlyn correlation will be important to exclude active myocardial ischemia and coronary artery disease. PREVIOUS TRACIN01/27/2017 05.48 DOCTOR: Katia Kan Interpretating Date/Time 01/29/2017 13:45:45
[2017-01-29] MEDS ORDERED: RESP: ALBUTEROL 2.5 MG/IPRATROPIUM 0.5 MG NEB (SCH) NEB (14:00)
[2017-01-29] MEDS: DOCUSATE SODIUM 100 MG CAP PO SCH ×2 (14:21→21:11)
[2017-01-29] MEDS ORDERED: LISINOPRIL 10 MG TAB PO SCH (15:15)
[2017-01-29 15:29] LABS: AUTOMATED NEUTROPHIL # 13.6 TH/MM3 (1.8-7.7); BASOPHIL % 0.1 % (0.0-2.0); EOSINOPHIL % 0.1 % (0.0-4.0); HEMO FLAGS DIFF FINAL; LYMPH % 11.5 % (9.0-44.0); MEAN CELL VOLUME 91.2 FL (80.0-100.0); MEAN CORPUSCULAR HEMOGLOBIN 30.2 PG (27.0-34.0); MEAN CORPUSCULAR HGB CONC 33.1 % (32.0-36.0); MONO % 9.7 % (0.0-8.0); NEUT % 78.6 % (16.0-70.0); PLATELET COUNT 203 TH/MM3 (150-450); RED BLOOD COUNT 4.28 MIL/MM3 (4.50-5.90); RED CELL DISTRIBUTION WIDTH 13.7 % (11.6-17.2); WHITE BLOOD COUNT 17.3 TH/MM3 (4.0-11.0)
[2017-01-29 15:49] LABS: POTASSIUM 4.2 MEQ/L (3.5-5.1)
--- NOTE | 2017-01-29 16:32 | ECHRPT ---
Indication: chest pain CONCLUSIONS The left ventricular systolic function is normal with an estimated ejection fraction in the range of 60-65%. Normal left ventricular size. Wall thickness is measured at the upper limits of normal. No regional wall motion abnormalities are present. There is trace tricuspid valve regurgitation. The estimated pulmonary arterial pressure is 22.3 mmHg. BP: 137 / 91 HR: 70 Rhythm: Sinus MEASUREMENTS (Male / Female) Normal Values Technical Quality:Very technically difficult study 2D ECHO LV Diastolic Diameter PLAX 3.6 cm 4.2 - 5.9 / 3.9 - 5.3 cm LV Systolic Diameter PLAX 2.6 cm IVS Diastolic Thickness 1.2 cm 0.6 - 1.0 / 0.6 - 0.9 cm LVPW Diastolic Thickness 1.1 cm 0.6 - 1.0 / 0.6 - 0.9 cm LV Relative Wall Thickness 0.6 LVOT Diameter 2.0 cm M-MODE Aortic Root Diameter MM 3.4 cm AV Cusp Separation MM 1.9 cm DOPPLER AV Peak Velocity 119.0 cm/s AV Peak Gradient 5.7 mmHg LVOT Peak Velocity 92.8 cm/s LVOT Peak Gradient 3.4 mmHg AV Area Cont Eq pk 2.4 cm MV Area PHT 4.8 cm Mitral E Point Velocity 62.2 cm/s Mitral A Point Velocity 44.9 cm/s Mitral E to A Ratio 1.4 TR Peak Velocity 175.0 cm/s TR Peak Gradient 12.3 mmHg Right Atrial Pressure 10.0 mmHg Pulmonary Artery Systolic Pressu 22.3 mmHg Right Ventricular Systolic Press 22.3 mmHg PV Peak Velocity 77.4 cm/s PV Peak Gradient 2.4 mmHg FINDINGS LEFT VENTRICLE The left ventricular systolic function is normal with an estimated ejection fraction in the range of 60-65%. Normal left ventricular size. Wall thickness is measured at the upper limits of normal. No regional wall motion abnormalities are present. RIGHT VENTRICLE Normal right ventricular size and systolic function. LEFT ATRIUM The left atrial size is normal. RIGHT ATRIUM The right atrial size is normal. ATRIAL SEPTUM Normal atrial septal thickness without atrial level shunting by limited color doppler interrogation. AORTA The aortic root and proximal ascending aorta are normal in size on limited imaging. MITRAL VALVE Structurally normal mitral valve. No mitral valve stenosis or regurgitation. AORTIC VALVE Trileaflet aortic valve. No aortic valve stenosis or regurgitation. TRICUSPID VALVE There is trace tricuspid valve regurgitation. The estimated pulmonary arterial pressure is 22.3 mmHg. PULMONARY VALVE No pulmonary valve regurgitation or stenosis. VESSELS The inferior vena cava is normal in size. PERICARDIUM No pericardial effusion. Abrahan Garcia MD, FACC (Electronically Signed) Final Date:29 January 2017 16:31
[2017-01-29] MEDS: MAGNESIUM SULFAT 1 GM PREMIX 100 ML x2 bags IV SCH ×2 (17:23→18:19)
[2017-01-29] MEDS: METOPROLOL TARTRATE 25 MG TAB PO SCH (20:00)
[2017-01-29] MEDS: ATORVASTATIN 40 MG TAB PO SCH (21:10)
[2017-01-29] MEDS: SENNOSIDES 8.6 MG TAB PO SCH (21:10)
[2017-01-30] VITALS (11 sets, daily range): BP systolic 100–141; BP diastolic 51–69; PULSE 86–114; RESP 16–17; TEMP 98.4–99.4; O2SAT 93–96
[2017-01-30] MEDS: KETOROLAC TROMETHAMINE 30 MG/ML (IVP) VIAL IV PUSH PRN ×2 (01:52→20:11)
[2017-01-30] MEDS: INSULIN ASPART SUPPLEMENTAL SCALE SQ SCH ×5 (02:56→21:00)
[2017-01-30] MEDS: METOPROLOL TARTRATE 25 MG TAB PO SCH ×3 (04:00→20:11)
[2017-01-30 05:08] LABS: BASOPHIL % 0.2 % (0.0-2.0); EOSINOPHIL % 0.1 % (0.0-4.0); HEMO FLAGS DIFF FINAL; LYMPH % 13.4 % (9.0-44.0); LYMPHOCYTE # 2.1 TH/MM3 (1.0-4.8); MEAN CELL VOLUME 90.7 FL (80.0-100.0); MEAN CORPUSCULAR HEMOGLOBIN 30.8 PG (27.0-34.0); MEAN CORPUSCULAR HGB CONC 33.9 % (32.0-36.0); MONO % 9.1 % (0.0-8.0); NEUT % 77.2 % (16.0-70.0); PLATELET COUNT 164 TH/MM3 (150-450); RED BLOOD COUNT 3.75 MIL/MM3 (4.50-5.90); RED CELL DISTRIBUTION WIDTH 13.5 % (11.6-17.2); WHITE BLOOD COUNT 15.6 TH/MM3 (4.0-11.0)
[2017-01-30] MEDS: oxyCODONE/ACETAMINOPHEN 5 MG/325 MG TAB PO PRN ×5 (05:56→21:26)
[2017-01-30 08:39] LABS: BICARBONATE 28.8 MEQ/L (21.0-32.0); MAGNESIUM 2.6 MG/DL (1.5-2.5); POTASSIUM 4.1 MEQ/L (3.5-5.1)
[2017-01-30] MEDS: MAGNESIUM HYDROXIDE SUSP 30 ML CUP PO SCH (08:39)
[2017-01-30] MEDS: POLYETHYLENE GLYCOL 17 GM PKG PO SCH (08:39)
[2017-01-30] MEDS: SODIUM CHLORIDE 0.9% FLUSH 10 ML FLUSH IV FLUSH SCH ×2 (08:39→20:12)
[2017-01-30] MEDS: MULTIVITAMINS/MINERALS THERAPEUTIC TAB PO SCH (08:40)
[2017-01-30] MEDS: DOCUSATE SODIUM 100 MG CAP PO SCH ×2 (08:40→20:10)
[2017-01-30] MEDS: AMIODARONE 200 MG TAB PO SCH ×2 (08:40→20:11)
[2017-01-30] MEDS: ASPIRIN 81 MG CHEW TAB CHEW SCH (08:40)
--- NOTE | 2017-01-30 13:53 | PD.CAR.PN ---
CVT Progress Note Subjective/Hospital Course: 41 y/o male presents with chest pain, SOB, and diaphoresis. He experienced chest pain and pressure radiating to both arms which awoke him from sleep. He presented to the ED and ruled-in for NSTEMI. He underwent cardiac cath today and was found to have high-grade LAD stenosis at the bifurcation of a diagonal and a 70% RCA stenosis. He has diffuse CAD. PMH: Hx HTN , no meds x 5 years surgery: CABG x 3 01/28 COWART to LAD - good SVG to D1 - good SVG to PDA - good EVH extubated after surgery, crystalloid 200cc, cell saver 1000cc 01/29 pt very painful, toradol added to percocet gentle diuresis , BB added , on ASA, statin will need aggressive pulm toileting OOB, ambulate 01/30 was still on simple mask this am , now on 6 liter nasal cannula tolerated Bipap x 6 hours last pm will continue at night as tolerated chest tube dc without difficulty needs aggressive pulm toileting OOB ambulate - balance -1300/24 hrs weight - on BB, ASA, statin , amiodarone Objective: GENERAL: SKIN: Warm and dry. prevena dressing to chest , incision intact left leg HEAD: Normocephalic. EYES: No scleral icterus. No injection or drainage. NECK: Supple, trachea midline. No JVD or lymphadenopathy. CARDIOVASCULAR: Regular rate and rhythm without murmurs, gallops, or rubs. slightly tachycardic RESPIRATORY: Breath sounds equal bilaterally. No accessory muscle use. diminished in bases, chest tubes dc GASTROINTESTINAL: Abdomen soft, non-tender, nondistended. MUSCULOSKELETAL: No cyanosis, or edema. BACK: Nontender without obvious deformity. No CVA tenderness. Vital Signs Date Time Temp Pulse Resp B/P (MAP) Pulse Ox O2 Delivery O2 Flow Rate FiO2 01/30/17 11:00 103 01/30/17 11:00 94 Nasal Cannula 6.00 01/30/17 11:00 98.9 103 16 120/69 (86) 96 01/30/17 08:00 104 01/30/17 08:00 99.1 104 16 119/58 (78) 96 01/30/17 08:00 96 Simple Mask 10.00 01/30/17 07:28 94 Simple Mask 8.00 01/30/17 07:00 16 01/30/17 03:57 96 50 01/30/17 03:00 94 Bi-Pap 60 01/30/17 03:00 114 01/30/17 03:00 99.4 109 17 100/51 (67) 94 01/30/17 02:57 17 01/30/17 00:35 96 60 01/29/17 23:21 20 01/29/17 23:00 94 Bi-Pap 60 01/29/17 23:00 97.9 104 16 96/49 (65) 94 01/29/17 23:00 101 01/29/17 22:45 94 60 01/29/17 21:00 94 Simple Mask 8.00 01/29/17 19:00 90 Simple Mask 10.00 01/29/17 19:00 99.3 119 22 91/55 (67) 90 01/29/17 19:00 120 01/29/17 15:51 92 Simple Mask 8.00 01/29/17 15:41 112 01/29/17 15:39 99.1 117 18 132/92 (105) 91 01/29/17 15:00 99.1 117 18 137/92 (107) 92 Labs: Laboratory Tests Test 01/30/17 04:45 White Blood Count 15.6 TH/MM3 (4.0-11.0) Red Blood Count 3.75 MIL/MM3 (4.50-5.90) Hemoglobin 11.5 GM/DL (13.0-17.0) Hematocrit 34.0 % (39.0-51.0) Mean Corpuscular Volume 90.7 FL (80.0-100.0) Mean Corpuscular Hemoglobin 30.8 PG (27.0-34.0) Mean Corpuscular Hemoglobin Concent 33.9 % (32.0-36.0) Red Cell Distribution Width 13.5 % (11.6-17.2) Platelet Count 164 TH/MM3 (150-450) Mean Platelet Volume 8.9 FL (7.0-11.0) Neutrophils (%) (Auto) 77.2 % (16.0-70.0) Lymphocytes (%) (Auto) 13.4 % (9.0-44.0) Monocytes (%) (Auto) 9.1 % (0.0-8.0) Eosinophils (%) (Auto) 0.1 % (0.0-4.0) Basophils (%) (Auto) 0.2 % (0.0-2.0) Neutrophils # (Auto) 12.0 TH/MM3 (1.8-7.7) Lymphocytes # (Auto) 2.1 TH/MM3 (1.0-4.8) Monocytes # (Auto) 1.4 TH/MM3 (0-0.9) Eosinophils # (Auto) 0.0 TH/MM3 (0-0.4) Basophils # (Auto) 0.0 TH/MM3 (0-0.2) CBC Comment DIFF FINAL Differential Comment Blood Urea Nitrogen 24 MG/DL (7-18) Creatinine 1.05 MG/DL (0.60-1.30) Random Glucose 122 MG/DL (74-106) Calcium Level 8.3 MG/DL (8.5-10.1) Magnesium Level 2.6 MG/DL (1.5-2.5) Sodium Level 137 MEQ/L (136-145) Potassium Level 4.1 MEQ/L (3.5-5.1) Chloride Level 101 MEQ/L (98-107) Carbon Dioxide Level 28.8 MEQ/L (21.0-32.0) Anion Gap 7 MEQ/L (5-15) Estimat Glomerular Filtration Rate 77 ML/MIN (>89) Result Diagram: 01/30/1744401/30/17444 (1) NSTEMI (non-ST elevated myocardial infarction) (2) S/P CABG x 3 Plan: ASA, statin , BB amiodarone pain control OOB, ambulate pulm toileting (3) HTN (hypertension) Plan: on BB (4) Tobacco abuse Plan: smoking cessation (5) CAD (coronary artery disease) (6) Hyperlipemia Plan: statin (7) Atelectasis Plan: Bipap at night , aggressive pulm toileting Problem Qualifiers (1) CAD (coronary artery disease): Qualified Codes: I25.110 - Atherosclerotic heart disease of [place] coronary artery with unstable angina pectoris (2) Hyperlipemia: Qualified Codes: E78.5 - Hyperlipidemia, unspecified Priscila Wong Jan 30, 2017 13:53
[2017-01-30] MEDS: ATORVASTATIN 40 MG TAB PO SCH (20:10)
[2017-01-30] MEDS: SENNOSIDES 8.6 MG TAB PO SCH (20:11)
[2017-01-31] VITALS (30 sets, daily range): BP systolic 118–138; BP diastolic 62–86; PULSE 85–111; RESP 16–18; TEMP 97.5–98.9; O2SAT 91–98
[2017-01-31] MEDS: oxyCODONE/ACETAMINOPHEN 5 MG/325 MG TAB PO PRN ×5 (01:29→21:58)
[2017-01-31 06:18] LABS: BICARBONATE 29.6 MEQ/L (21.0-32.0); MAGNESIUM 2.6 MG/DL (1.5-2.5); POTASSIUM 4.1 MEQ/L (3.5-5.1)
--- NOTE | 2017-01-31 06:41 | RADRPT ---
EXAM DATE/TIME: 01/31/2017 05:12 [facility] COMPARISON: CHEST SINGLE AP, January 29, 2017, 4:08. INDICATIONS : Shortness of breath, possible pulmonary disease. MEDICAL HISTORY : Hypertension. SURGICAL HISTORY : CABG. Hernia repair ENCOUNTER: Subsequent ACUITY: 4 - 6 days PAIN SCORE: 5/10 LOCATION: Bilateral chest FINDINGS: The patient is status post sternotomy. A right internal jugular central line is well placed. The hear t size is enlarged. The left chest tube has been removed. A significant pneumothorax is not seen. The re is diffuse airspace disease. CONCLUSION: Persistent diffuse airspace disease. This could represent edema. Miguel Ángel Portillo MD on January 31, 2017 at 6:39 Board Certified Radiologist. This report was verified electronically.
[2017-01-31] MEDS: INSULIN ASPART SUPPLEMENTAL SCALE SQ SCH ×4 (07:51→20:10)
[2017-01-31] MEDS: RESP: ALBUTEROL 2.5 MG/IPRATROPIUM 0.5 MG NEB (SCH) NEB ×3 (08:07→19:49)
[2017-01-31] MEDS: AMIODARONE 200 MG TAB PO SCH ×2 (09:00→20:10)
[2017-01-31] MEDS: DOCUSATE SODIUM 100 MG CAP PO SCH ×2 (09:00→20:09)
[2017-01-31] MEDS: POLYETHYLENE GLYCOL 17 GM PKG PO SCH (09:00)
[2017-01-31] MEDS: SODIUM CHLORIDE 0.9% FLUSH 10 ML FLUSH IV FLUSH SCH ×2 (09:00→20:10)
[2017-01-31] MEDS: MAGNESIUM HYDROXIDE SUSP 30 ML CUP PO SCH (09:00)
[2017-01-31] MEDS: ASPIRIN 81 MG CHEW TAB CHEW SCH (09:19)
[2017-01-31] MEDS: METOPROLOL TARTRATE 25 MG TAB PO SCH ×2 (09:20→20:09)
[2017-01-31] MEDS: MULTIVITAMINS/MINERALS THERAPEUTIC TAB PO SCH (09:22)
[2017-01-31] MEDS ORDERED: ASPI81CH25 CHEW (12:19)
[2017-01-31] MEDS ORDERED: THERM PO (12:19)
[2017-01-31] MEDS ORDERED: AMIO200T PO (12:19)
[2017-01-31] MEDS ORDERED: OXYC1TAB63 PO (12:19)
[2017-01-31] MEDS ORDERED: METO25TA3 PO (12:19)
[2017-01-31] MEDS ORDERED: DOCU1CAP39 PO (12:19)
[2017-01-31] MEDS ORDERED: ATOR40TA16 PO (12:19)
--- NOTE | 2017-01-31 12:24 | HHI.DS ---
Discharge Summary Admission Date Jan 27, 2017 at 02:01 Discharge Date: Jan 31, 2017 Admitting Diagnosis Multivessel CAD Non STEMI (1) NSTEMI (non-ST elevated myocardial infarction) Diagnosis: Principal ICD Codes: I21.4 - Non-ST elevation (NSTEMI) myocardial infarction (2) HTN (hypertension) Diagnosis: Secondary ICD Codes: I10 - Essential (primary) hypertension (3) CAD (coronary artery disease) Diagnosis: Principal ICD Codes: I25.10 - Atherosclerotic heart disease of [place] coronary artery without angina pectoris (4) Tobacco abuse Diagnosis: Secondary ICD Codes: Z72.0 - Tobacco use (5) Hyperlipemia Diagnosis: Secondary ICD Codes: E78.5 - Hyperlipidemia, unspecified Procedures CABG x 3 Left heart catheterization Brief History 41 y/o male presents with chest pain, SOB, and diaphoresis. He experienced chest pain and pressure radiating to both arms which awoke him from sleep. He presented to the ED and ruled-in for NSTEMI. He underwent cardiac cath today and was found to have high-grade LAD stenosis at the bifurcation of a diagonal and a 70% RCA stenosis. He has diffuse CAD. CBC/BMP: 01/30/17 0445 01/31/17 0530 Significant Findings Laboratory Tests Test 01/28/17 12:30 01/29/17 15:00 01/30/17 04:45 01/31/17 05:30 White Blood Count 21.3 TH/MM3 (4.0-11.0) 17.3 TH/MM3 (4.0-11.0) 15.6 TH/MM3 (4.0-11.0) Red Blood Count 4.23 MIL/MM3 (4.50-5.90) 4.28 MIL/MM3 (4.50-5.90) 3.75 MIL/MM3 (4.50-5.90) Hemoglobin 12.7 GM/DL (13.0-17.0) 12.9 GM/DL (13.0-17.0) 11.5 GM/DL (13.0-17.0) Hematocrit 38.4 % (39.0-51.0) 34.0 % (39.0-51.0) Neutrophils (%) (Auto) 82.7 % (16.0-70.0) 78.6 % (16.0-70.0) 77.2 % (16.0-70.0) Neutrophils # (Auto) 17.6 TH/MM3 (1.8-7.7) 13.6 TH/MM3 (1.8-7.7) 12.0 TH/MM3 (1.8-7.7) Monocytes # (Auto) 1.6 TH/MM3 (0-0.9) 1.7 TH/MM3 (0-0.9) 1.4 TH/MM3 (0-0.9) Random Glucose 160 MG/DL (74-106) 124 MG/DL (74-106) 122 MG/DL (74-106) Calcium Level 8.2 MG/DL (8.5-10.1) 7.9 MG/DL (8.5-10.1) 8.3 MG/DL (8.5-10.1) 8.2 MG/DL (8.5-10.1) Chloride Level 108 MEQ/L (98-107) Estimat Glomerular Filtration Rate 85 ML/MIN (>89) 77 ML/MIN (>89) Monocytes (%) (Auto) 9.7 % (0.0-8.0) 9.1 % (0.0-8.0) Blood Urea Nitrogen 19 MG/DL (7-18) 24 MG/DL (7-18) 21 MG/DL (7-18) Magnesium Level 2.6 MG/DL (1.5-2.5) 2.6 MG/DL (1.5-2.5) Imaging Last Impressions Chest X-Ray 01/31/17 0600 Signed Impressions: Service Date/Time: Tuesday, January 31, 2017 05:12 - CONCLUSION: Persistent diffuse airspace disease. This could represent edema. Miguel Ángel Portillo MD Lower Extremity Ultrasound 01/27/17 0000 Signed Impressions: Service Date/Time: Friday, January 27, 2017 12:40 - CONCLUSION: 1. Lower extremity venous mapping, as above. Chance Gan MD Carotid Artery Ultrasound 01/27/17 0000 Signed Impressions: Service Date/Time: Friday, January 27, 2017 12:13 - CONCLUSION: 1. Very minimal carotid plaque without significant flow-limiting stenosis. 2. Antegrade vertebral artery flow bilaterally. Chance Gan MD PE at Discharge chest - CTA COR - RRR ABD - soft, NT, NABS wound - dry and intact Hospital Course Patient presented with chest pain, dyspnea. Ruled-in for NSTEMI. He underwent LHC by Dr. Garcia and was found to have multivessel CAD. He underwent CABG x 3 and had some issues with hypoxia and hypotension immediately postoperatively. This rapidly improved and the remainder of his course is unremarkable. Discharge Disposition: Disch w/ Home Health Serv Discharge Instructions DIET: Follow Instructions for: Heart Healthy Diet Activities you can perform: Weight Bearing as [place] Activities to avoid: Lifting/Bending, Strenuous Activity, Driving Follow up Referrals: Appointment for Follow Up Cardiology - [address] [facility] Cardiology PCP Follow-up New Orders: BASIC METABOLIC PROF - 2 Weeks CBC NO DIFF - 2 Weeks X-RAY CHEST PA & LAT - 2 Weeks New Medications: Amiodarone (Amiodarone) 200 Mg Tab 200 MG PO Q12HR for Regulate Heart Beat for 14 Days, #28 TAB Aspirin (Aspirin Low Strength) 81 Mg Chew 81 MG CHEW DAILY for Blood Clot Prevention for 90 Days, #90 EA 6 Refills Atorvastatin (Atorvastatin) 40 Mg Tab 40 MG PO HS for Cholesterol Management for 90 Days, #90 TAB 3 Refills Docusate Sodium (Dok) 100 Mg Cap 100 MG PO BID for Constipation, #28 CAP Metoprolol Tartrate (Metoprolol Tartrate) 25 Mg Tab 25 MG PO Q12HR for Blood Pressure Management for 90 Days, #60 TAB 3 Refills Multiple Vitamins W/ Minerals (Thera M Plus) 1 Tab 1 TAB PO DAILY for Nutritional Supplement, #100 TAB Oxycodone-Acetaminophen (Oxycodone-Acetaminophen) 5-325 mg Tab 1 TAB PO Q4H PRN for PAIN SCALE 1 TO 5, #30 TAB 0 Refills Lucero Bunn MD Jan 31, 2017 12:24
[2017-01-31] MEDS: SENNOSIDES 8.6 MG TAB PO SCH (20:10)
[2017-01-31] MEDS: ATORVASTATIN 40 MG TAB PO SCH (20:10)
[2017-02-01] VITALS (12 sets, daily range): BP systolic 126–137; BP diastolic 72–75; PULSE 73–104; RESP 18; TEMP 98.2; O2SAT 93–95
[2017-02-01] MEDS: oxyCODONE/ACETAMINOPHEN 5 MG/325 MG TAB PO PRN ×2 (03:17→09:18)
[2017-02-01] MEDS: RESP: ALBUTEROL 2.5 MG/IPRATROPIUM 0.5 MG NEB (SCH) NEB (07:39)
[2017-02-01] MEDS: INSULIN ASPART SUPPLEMENTAL SCALE SQ SCH (08:00)
[2017-02-01] MEDS: POLYETHYLENE GLYCOL 17 GM PKG PO SCH (09:13)
[2017-02-01] MEDS: MAGNESIUM HYDROXIDE SUSP 30 ML CUP PO SCH (09:13)
[2017-02-01] MEDS: MULTIVITAMINS/MINERALS THERAPEUTIC TAB PO SCH (09:13)
[2017-02-01] MEDS: METOPROLOL TARTRATE 25 MG TAB PO SCH (09:13)
[2017-02-01] MEDS: SODIUM CHLORIDE 0.9% FLUSH 10 ML FLUSH IV FLUSH SCH (09:13)
[2017-02-01] MEDS: AMIODARONE 200 MG TAB PO SCH (09:14)
[2017-02-01] MEDS: ASPIRIN 81 MG CHEW TAB CHEW SCH (09:14)
[2017-02-01] MEDS: DOCUSATE SODIUM 100 MG CAP PO SCH (09:14)
== END 2017-02-01 10:06 | disposition home health service (06) | DRG 234 ==
LOC: NEPE 23:32 → NEDA 01-27 02:01 → NEPHCDU 01-27 04:12 → HCIS 01-27 11:17 → HCIN 01-27 14:35 → HCPC 01-27 21:42 → HCIS 01-28 07:15 → HCPC 01-28 10:40 → HCVI 01-28 12:13 → HCPC 01-30 20:30
PROVIDERS: ADMIT Thoracic Surgery (Cardiothoracic Vascular Surgery); ATTEND Thoracic Surgery (Cardiothoracic Vascular Surgery)
PROC: 4A023N7 Measurement of Cardiac Sampling and Pressure, Left Heart, Percutaneous Approach (ICD-10-PCS; 2017-01-27)
PROC: B2151ZZ Fluoroscopy of Left Heart using Low Osmolar Contrast (ICD-10-PCS; 2017-01-27)
PROC: B2111ZZ Fluoroscopy of Multiple Coronary Arteries using Low Osmolar Contrast (ICD-10-PCS; 2017-01-27)
PROC: 021109W Bypass Coronary Artery, Two Arteries from Aorta with Autologous Venous Tissue, Open Approach (ICD-10-PCS; 2017-01-28)
PROC: 06BQ0ZZ Excision of Left Saphenous Vein, Open Approach (ICD-10-PCS; 2017-01-28)
PROC: 07B90ZX Excision of Left Internal Mammary Lymphatic, Open Approach, Diagnostic (ICD-10-PCS; 2017-01-28)
PROC: 5A1221Z Performance of Cardiac Output, Continuous (ICD-10-PCS; 2017-01-28)
PROC: 02100Z9 Bypass Coronary Artery, One Artery from Left Internal Mammary, Open Approach (ICD-10-PCS; principal; 2017-01-28 08:00)
DX: I21.4 Non-ST elevation (NSTEMI) myocardial infarction (principal); I10 Essential (primary) hypertension; F17.210 Nicotine dependence, cigarettes, uncomplicated; I25.110 Atherosclerotic heart disease of native coronary artery with unstable angina pectoris; R73.9 Hyperglycemia, unspecified; E78.1 Pure hyperglyceridemia
CPT/HCPCS: 36430; 71010; 76937; 80048; 80053; 80061; 81001; 82550; 82552; 82805; 82948; 83036; 83690; 83735; 83880; 84100; 84484; 85014; 85025; 85379; 85610; 85730; 86850; 86900; 86901; 86920; 87641; 88305; 93005; 93306; 93458; 93880; 93970; 93998; 94002; 94003; 94150; 94640; 94664; 94667; 94668; 96361; 96374; 96375; C1769; C1893; J0131; J0690; J1644; J1815; J1885; J1940; J2150; J2250; J2270; J2370; J2405; J2440; J2710; J2720; J2930; J3010; J3370; J3475; J3480; J7030; J7040; J7050; J7060; J7120; P9016; P9047; Q9967

== ENCOUNTER → 2017-02-26 | Outpatient (CLI) | payer OTHER ==
[~2017-02-26] MED LIST: AMIO200T PO; ASPI81CH25 CHEW; ATOR40TA16 PO; DOCU1CAP39 PO; METO25TA3 PO; OXYC1TAB63 PO; THERM PO
--- NOTE | 2017-02-26 13:06 | RADRPT ---
EXAM DATE/TIME: 02/26/2017 12:16 [facility] COMPARISON: No previous studies available for comparison. INDICATIONS : Post CABG 3 weeks ago patients states when he lays down he feels and hears a clicking in his chest. MEDICAL HISTORY : Cardiovascular disease. SURGICAL HISTORY : CABG. ENCOUNTER: Initial ACUITY: 2 weeks PAIN SCORE: 0/10 LOCATION: chest FINDINGS: There is mild left base atelectasis and a small left pleural effusion. Right lung is now clear. No pn eumothorax. Heart size stable, within normal limits. Patient has had previous median sternotomy. The previously seen right IJ line has been remain. CONCLUSION: Mild left base atelectasis and small left pleural effusion. Miguel Ángel Raymundo MD on February 26, 2017 at 13:03 Board Certified Radiologist. This report was verified electronically.
== END ==
LOC: HRAD 12:03
PROVIDERS: ATTEND Nurse Practitioner
DX: Z95.1 Presence of aortocoronary bypass graft (principal)
CPT/HCPCS: 71020

== ENCOUNTER 2017-09-17 09:41 | Emergency (ER) | payer OTHER ==
[~2017-09-17] VITALS: Ht 175.3 cm; Wt 118.0 kg
[2017-09-17 10:00] VITALS: BP 142/77; PULSE 85; RESP 18; TEMP 98.6
[2017-09-17 10:29] VITALS: BP 144/93; PULSE 91; RESP 17; O2SAT 96
[2017-09-17] MEDS ORDERED: FAMOTIDINE 20 MG/2 ML VIAL IV PUSH SCH (10:45)
[2017-09-17] MEDS ORDERED: methylPREDNISolone SOD SUCC 125 MG/2 ML VIAL IV ONE (10:45)
[2017-09-17] MEDS ORDERED: diphenhydrAMINE HCL 50 MG/ML VIAL IV PUSH ONE (10:45)
[2017-09-17] MEDS ORDERED: ZANT150T2 PO (10:46)
[2017-09-17] MEDS ORDERED: PRED-503 PO (10:46)
--- NOTE | 2017-09-17 10:46 | PD ---
HPI Chief Complaint: Allergic/Adverse Reaction Time Seen by Provider: 10:26 Travel History International Travel<30 days: No Contact w/Intl Traveler<30days: No Traveled to known affect area: No History of Present Illness HPI 41-year-old male presents to the emergency department with complaint of a rash to bilateral forearms that is worsened since Thursday after being exposed to a chemical called mineral spirits, a paint remover. He had gloves on that extended from his hands all the way up to his shoulders when he was using this product. I suspect the reaction is from the gloves, and not the chemical, as he did not have any exposure to his skin from the chemical. Says the rash is itchy and has now become painful and itchy. Denies airway edema, tongue edema. Denies fever, vomiting. Says he has a "little bit" of shortness of breath only when he lays down, otherwise denies shortness of breath. Has tried topical hydrocortisone and taken Benadryl with minimal symptom management. No known aggravating or relieving factors. Symptoms are mild to moderate in severity. No primary care provider. History of hypertension and hypercholesterolemia. No known allergies. Has no other medical complaints. No other modifying factors or associated signs and symptoms. PFSH Past Medical History Diminished Hearing: No Hypertension: Yes Myocardial Infarction: Yes Tetanus Vaccination: Unknown Influenza Vaccination: No Past Surgical History Abdominal Surgery: Yes (HERNIA REPAIR) Coronary Artery Bypass Graft: Yes Social History Alcohol Use: No Tobacco Use: No Substance Use: No Allergies-Medications (Allergen,Severity, Reaction): Coded Allergies: No Known Allergies (Unverified Adverse Reaction, Unknown, 09/17/17) Reported Meds & Prescriptions Reported Meds & Active Scripts Active Zantac (Ranitidine HCl) 150 Mg Tab 150 Mg PO BID 5 Days Deltasone (Prednisone) 20 Mg Tab 40 Mg PO DAILY 5 Days Thera M Plus (Multivitamins/Minerals Therapeutic) 1 Tab 1 Tab PO DAILY Aspirin Low Strength (Aspirin) 81 Mg Chew 81 Mg CHEW DAILY 90 Days Metoprolol Tartrate 25 Mg Tab 25 Mg PO Q12HR 90 Days Atorvastatin (Atorvastatin Calcium) 40 Mg Tab 40 Mg PO HS 90 Days Review of Systems Except as stated in HPI: all other systems reviewed are Neg Physical Exam Narrative GENERAL: Well-nourished, well-developed male patient, in no acute distress; afebrile, nontoxic-appearing SKIN: Warm and dry. Generalized large and small areas of maculopapular rash to bilateral forearms and minimal maculopapular rash noted to bilateral biceps area. No cellulitic process noted. Bilateral upper extremities are supple and nontender 2+ radial pulses and sensory intact. HEAD: Atraumatic. Normocephalic. EYES: Pupils equal and round. No scleral icterus. No injection or drainage. ENT: Mucosa pink and moist. No erythema or exudates. No uvular edema. No uvular , palatal, or tonsillar deviation. Airway patent. EARS: Bilateral pinnae and external canals appear within normal limits. NECK: Trachea midline. CARDIOVASCULAR: Regular rate and rhythm. No murmur appreciated. RESPIRATORY: No accessory muscle use. Clear to auscultation. Breath sounds equal bilaterally. No retractions or tachypnea. No audible wheezing or stridor. GASTROINTESTINAL: Rounded MUSCULOSKELETAL: No obvious deformities. No clubbing. No cyanosis. No edema. NEUROLOGICAL: Awake and alert. Oriented 3. No obvious cranial nerve deficits. Motor grossly within normal limits. Normal speech. Moves all extremities. 5/5 strength to all extremities. PSYCHIATRIC: Appropriate mood and affect; insight and judgment normal. Data Data Last Documented VS Vital Signs Date Time Temp Pulse Resp B/P (MAP) Pulse Ox O2 Delivery O2 Flow Rate FiO2 09/17/17 10:29 91 17 144/93 (110) 96 Room Air 09/17/17 10:00 98.6 Orders Orders Methylprednisolone So Succ Inj (Solumedr (09/17/17 10:45) Famotidine Inj (Pepcid Inj) (09/17/17 10:45) Diphenhydramine Inj (Benadryl Inj) (09/17/17 10:45) [facility] Medical Decision Making Medical Screen Exam Complete: Yes Emergency Medical Condition: Yes Medical Record Reviewed: Yes Differential Diagnosis Contact dermatitis, hives, allergic reaction, chemical burn Narrative Course 41-year-old male with suspected contact dermatitis from gloves that extended from his hands to his shoulders that he wore at work on Thursday. He is in no acute distress. Denies airway edema, tongue edema. Lungs are clear and equal throughout. Oxygen saturation is 96% on room air. I discussed my plan of care with Dr. Peterson and she agrees with my plan of care. IV Benadryl, Solu-Medrol , Pepcid ordered. Zantac, Deltasone prescribed for home. Instructed patient to take Benadryl as directed and as needed for rash/itching. Instructed patient to follow-up with housekeeper cleaning cooking. Instructed patient to follow up with primary care provider. Patient verbalizes understanding and agreement with treatment plan. Patient is medically cleared and stable for discharge. Discussed reasons to return to the emergency department. Patient agrees with treatment plan. The patients vital signs are stable and the patient is stable for outpatient follow-up and treatment. Patient discharged home, stable and in no acute distress. Diagnosis Primary Impression: Contact dermatitis Qualified Codes: L25.9 - Unspecified contact dermatitis, unspecified cause Referrals: [facility] Primary Care Physician Patient Instructions: Contact Dermatitis (ED), General Instructions Additional Instructions: Take oral steroids as prescribed [id number]-owifryo topicals to reduce itch Benadryl as directed and as needed to reduce itch Follow-up with your primary care provider Return to the emergency department immediately with worsening of symptoms Med/Other Pt SpecificInfo: Prescription(s) given Scripts Ranitidine (Zantac) 150 Mg Tab 150 MG PO BID for Reduce Stomach Acid for 5 Days, #10 TAB 0 Refills Prov: Chely Joel 09/17/17 Prednisone (Deltasone) 20 Mg Tab 40 MG PO DAILY for 5 Days, #10 TAB 0 Refills Prov: Chely Joel 09/17/17 Disposition: 01 DISCHARGE HOME Condition: Stable Chely Joel September 17, 2017 10:46
[2017-09-17 11:50] VITALS: BP 138/82
== END 2017-09-17 11:50 | disposition home or self-care (01) ==
LOC: NEPD 09:41
DX: L25.9 Unspecified contact dermatitis, unspecified cause (principal); E78.00 Pure hypercholesterolemia, unspecified; I10 Essential (primary) hypertension
CPT/HCPCS: 96374; 96375; 99284; J1200; J2930